=== PATIENT | female | born 1945 | race Caucasian/White ===

== ENCOUNTER → 2018-03-21 11:16 | Outpatient (CLI) | payer MEDICARE, SELFPAY ==
--- NOTE | 2018-03-21 | DI.MG.S_ITS ---
BILATERAL DIGITAL SCREENING MAMMOGRAM 3D/2D WITH CAD: 03/21/2018 CLINICAL: Routine screening. Family history of breast cancer. Comparison is made to exams dated: 03/04/2017 mammogram, 08/27/2015 mammogram, and 02/12/2015 mammogram - [facility]. The tissue of both breasts is extremely dense, which lowers the sensitivity of mammography. Current study was also evaluated with a Computer Aided Detection (CAD) system. There are benign calcifications in the right breast. There also is a biopsy clip in the left breast. No significant masses, calcifications, or other findings are seen in either breast. There has been no significant interval change. IMPRESSION: BENIGN There is no mammographic evidence of malignancy. A 1 year screening mammogram is recommended. This exam was interpreted at Station ID: [id number]. NOTE: For mammograms, a report in lay terms will be sent to the patient. Approximately 15% of breast malignancies will not be visualized mammographically. In the management of a palpable breast mass, a negative mammogram must not discourage biopsy of a clinically suspicious lesion. Electronically Signed By: Shaun lion/pavel:03/21/2018 20:21:18 letter sent: Normal Exam ACR BI-RADS Category 2: Benign Finding(s) 3342F
== END ==
PROVIDERS: Family Provider Physician Assistant; PCP Physician Assistant; Visit Provider Physician Assistant
DX: Z12.31 Encounter for screening mammogram for malignant neoplasm of breast (principal); Z80.3 Family history of malignant neoplasm of breast
CPT/HCPCS: 77063; 77067

== ENCOUNTER → 2018-07-21 07:05 | Outpatient (CLI) | payer MEDICARE, SELFPAY ==
[2018-07-21 08:24] LABS: Alanine Aminotransferase 18 IU/L (9-52); Albumin 4.5 g/dL (3.5-5.0); Albumin Globulin Ratio 1.5 (1.0-2.8); Alkaline Phosphatase 89 U/L (38-126); Aspartate Aminotransferase 23 IU/L (14-36); BUN Creatinine Ratio 18.8 (6-22); Bilirubin Total 0.2 mg/dL (0.2-1.3); Blood Urea Nitrogen 15 mg/dL (7-17); Calcium 9.5 mg/dL (8.4-10.2); Carbon Dioxide 30 mmol/L (22-32); Chloride 102 mmol/L (98-107); Cholesterol 227 mg/dL (140-199); Estimated Glomerular Filt Rate > 60.0 mL/min (>60); Glucose 93 mg/dL (80-110); HDL Cholesterol 54 mg/dL (40-60); HEMOLYSIS < 15 (0-50); LDL Cholesterol Calculated 150 mg/dL (<100); Potassium 4.4 mmol/L (3.4-5.1); Sodium 144 mmol/L (137-145); Total Protein 7.5 g/dL (6.3-8.2); Triglycerides 113 mg/dL (35-150)
[2018-07-21 08:37] LABS: Vitamin D 25 Hydroxy (D3) 74.3 ng/mL (30.0-100.0)
[2018-07-21 08:52] LABS: Thyroid Stimulating Hormone 1.49 uIU/mL (0.47-4.68)
[2018-07-21 09:10] LABS: Hep C Virus Ab w/Reflex Quant NEGATIVE s/c (NEGATIVE)
== END ==
PROVIDERS: PCP Physician Assistant; Visit Provider Physician Assistant
DX: E78.5 Hyperlipidemia, unspecified (principal); M81.0 Age-related osteoporosis without current pathological fracture; Z11.59 Encounter for screening for other viral diseases
CPT/HCPCS: 36415; 80053; 80061; 82306; 84443; 86803

== ENCOUNTER 2018-08-02 07:42 | Day surgery (SDC) | payer MEDICARE, SELFPAY ==
[2018-08-02] VITALS (7 sets, daily range): BP systolic 100–117; BP diastolic 65–77; PULSE 70–85; RESP 12–97; TEMP 35.7–36.5; O2SAT 96–100; BMI 23.8
--- NOTE | 2018-08-02 | PATH_ITS ---
[facility] Accession Number: [id number] . 01 Material submitted: . COLON POLYP AT 30CM . 02 Diagnosis: Colon, Polyp at 30 cm, Biopsy: Hyperplastic polyp. [facility]/08/04/2018 . 02 Electronically signed: . Kamryn Gruber MD, Pathologist NPI- [id number] . 01 Gross description: . COLON POLYP AT 30CM: Received in formalin is 1 fragment(s) of moyer, soft tissue measuring 0.4 x 0.4 x 0.2 cm submitted entirely in 1 cassette(s) /CKI /CKI . 02 Pathologist provided ICD-10: K63.5 . 02 CPT . 253183 Performed at: 01 [facility] [address] [id number] MD Twan Roberson MD Phone: [phone] Performed at: 02 [facility] [address] [place], [place] [id number] MD Kamryn Gruber MD Phone: [phone]
[2018-08-02] MEDS: SODIUM CHLORIDE 0.9% 1,000 ML 200 ML IV (08:15)
--- NOTE | 2018-08-02 08:34 | SUR.PREOP ---
Pt ready for Endo at this time. IVF up, PIV patent, nursing data base has been completed, and awaiting MD to sign consent.
--- NOTE | 2018-08-02 09:24 | PM.HP.1 ---
History of Present Illness Date Patient Seen: 08/02/18 Time Patient Seen: 09:24 Chief complaint: colonoscopy [id number] Narrative: The patient is a woman here for screening colonoscopy. Last exam was 5 years ago. She has had polyps removed in the past. Patient History Family & Social History Family History: Reviewed 08/02/18 by Gus Tavera MD Social History: household members spouse Tobacco & Substance use: Smoking Status Former smoker alcohol intake current Meds Home Medications Medication Instructions Recorded Confirmed Type [VITAMIN D] 1,000 units PO QDAY #0 01/06/11 08/02/18 History Calcium Gummies See Label Instructions .ROUTE 06/01/18 08/02/18 History .COMPLEX Krill Oil See Label Instructions .ROUTE 06/01/18 08/02/18 History .COMPLEX Multivitamin Gummies See Label Instructions .ROUTE 06/01/18 08/02/18 History .COMPLEX pneumococcal 13-emiliana conj 0.5 ml IM ONCE #0.5 ml 06/01/18 Rx vaccine-dip crm (PF) 0.5 mL IM syringe varicella-zoster glycoE vacc-AS01B 50 mcg IM ONCE #1 each 06/01/18 Rx adj(PF) 50 mcg/0.5 mL IM susp, kit Lacto.acidophilus-Bif.animalis 1 cap PO DAILY 08/02/18 08/02/18 History [Probiotic] Allergies Allergy/AdvReac Type Severity Reaction Status Date / Time nitrofurantoin Allergy Severe HIVES Unverified 06/01/18 11:33 [NITROFURANTOIN] bupropion [BUPROPION] AdvReac Severe HIVES AND Unverified 06/01/18 11:33 ITCHING ALL OVER BODY shrimp AdvReac Intermediate N/V/D; hot Verified 06/01/18 12:12 flashes and sweating Review of Systems Review of Systems All systems reviewed & are unremarkable except as noted in HPI and below Exam Vital Signs (past 8 hours): - 08/02/18 08:04 Temperature 97.3 F L Pulse Rate 85 Respiratory Rate 15 Blood Pressure 106/77 Pulse Oximetry 100 Oxygen Delivery Method Room Air Narrative Exam Narrative: Operative no apparent distress. Lungs are clear to auscultation no rales or rhonchi. Heart regular rate and rhythm no murmur gallop. Abdomen is soft nontender without mass. Alert and oriented x3. Assessment & Plan Plan: Assessment/Plan Narrative: Will proceed to colonoscopy. I have discussed the procedure and the rationale with the patient including risks of bleeding, perforation which would necessitate a major operation, failure to find remove all lesions and the potential to tattoo. They appeared to understand and wished to proceed.
--- NOTE | 2018-08-02 09:26 | PM.PREOP ---
Pre-operative Note Interval Note Pre-op Check: Yes History & Physical exam performed today by Physician Changes: No ASA Class (for procedural sedation): I
[2018-08-02] MEDS: fentaNYL 250 MCG/5 ML INJ IV (09:51)
[2018-08-02] MEDS: MIDAZOLAM 5 MG/5 ML VIAL IV (09:51)
--- NOTE | 2018-08-02 10:07 | PM.OP.ENDO ---
Operative Date/Time/Diagnoses Date of procedure: 08/02/18 Time of procedure: 10:00 Pre-op diagnosis: Screening exam. History of polyps. Last colonoscopy 5 years ago Post-op diagnosis: same (Sigmoid diverticulosis. Hemorrhoids. One tiny polypoid lesion at 30 cm from the anal verge) Procedure & Clinicians Study performed: Colonoscopy with cold biopsy Same procedure as scheduled: Yes Indications: Screening exam Surgeon: Gus Tavera Procedure Notes SCOAP/Timeout: Performed Procedure in detail: The patient was placed in the left lateral decubitus position and underwent IV sedation directed by the surgeon consisting of fentanyl and Versed. Digital exam was unremarkable. The scope was inserted and advanced through the rectum into the sigmoid colon. The patient was repositioned in a stiffener added in order to make our way through the descending, transverse, and ascending colon. The patient was noted to have sigmoid diverticulosis.. The cecum was reached identified by the ileocecal valve and the appendiceal opening. The ileocecal valve was successfully cannulated. The terminal ileum was normal in appearance. The scope was gradually brought out. A single Polypoid lesion was found at 30 cm from the anal verge. it was removed with cold biopsy forceps. The scope ultimately was attempted to be retroflexed in the rectum. This was unsuccessful. The scope was brought very slowly through the anal verge. The appearance was remarkable for hemorrhoids without ulceration. There was 1 small irregularity which I biopsied but the specimen was not in the forcep. The scope was removed and the patient tolerated the procedure well. Prep was very good. Scope withdrawal time: 10 min Sedation minutes: 28 Findings: diverticulosis (Sigmoid), internal hemorrhoids and polyp (30 cm from the anal verge) Specimen(s): other (Polypoid lesion) Complications: none Recommendations: Colonscopy in 5 years Follow up: as needed Disposition: PACU
== END 2018-08-02 11:10 | disposition home or self-care (01) ==
PROVIDERS: PCP Physician Assistant; Visit Provider Specialist
PROC: 0DJD8ZZ Inspection of Lower Intestinal Tract, Via Natural or Artificial Opening Endoscopic (ICD-10-PCS; CPT 45378; principal; 2018-08-02 08:45)
DX: Z86.010 Personal history of colon polyps (principal); K57.30 Diverticulosis of large intestine without perforation or abscess without bleeding; K64.8 Other hemorrhoids; Z87.891 Personal history of nicotine dependence; K63.5 Polyp of colon
CPT/HCPCS: 45380; 88305; 99152; 99153; J2250; J3010

== ENCOUNTER → 2019-01-06 15:37 | Outpatient (CLI) | payer MEDICARE, SELFPAY ==
[2019-01-06 16:04] LABS: Bilirubin Urine UA NEGATIVE (NEGATIVE); Color Urine UA YELLOW; Glucose Urine UA NEGATIVE (Negative); Ketones Urine UA NEGATIVE (NEGATIVE); Leukocyte Esterase Urine UA TRACE (NEGATIVE); Nitrite Urine UA NEGATIVE (Negative); Occult Blood Urine UA 1+ (Negative); Protein Urine UA NEGATIVE (Negative); Urobilinogen Urine UA 0.2 E.U./dL (0.2)
[2019-01-06 16:07] LABS: Appearance Urine UA Slightly Cloudy
[2019-01-06 16:10] LABS: RBC Urine 1-5/HPF (0-5/HPF)
[2019-01-06 16:11] LABS: Amorphous Sediment Urine 1+; Bacteria Urine Occasional (0-1); Culture Indicated Urine Specimen Cultured; Mucus Urine 1+ (Negative); Squamous Epithelial Cell Urine 0-1 /HPF (0-5/HPF); WBC Urine 5-10/HPF (0-5/HPF)
== END ==
PROVIDERS: PCP Physician Assistant; Visit Provider Nurse Practitioner Family
DX: R30.0 Dysuria (principal)
CPT/HCPCS: 81001; 87086

== ENCOUNTER → 2019-01-13 13:39 | Outpatient (CLI) | payer MEDICARE, SELFPAY ==
[2019-01-13 13:42] LABS: Bacteria Urine None Seen
[2019-01-14 08:39] LABS: Appearance Urine UA CLEAR; Bilirubin Urine UA NEGATIVE (NEGATIVE); Color Urine UA YELLOW; Glucose Urine UA NEGATIVE (Negative); Ketones Urine UA NEGATIVE (NEGATIVE); Leukocyte Esterase Urine UA NEGATIVE (NEGATIVE); Nitrite Urine UA NEGATIVE (Negative); Occult Blood Urine UA NEGATIVE (Negative); Protein Urine UA NEGATIVE (Negative); Specific Gravity Urine UA 1.025 (1.000-1.035); Urobilinogen Urine UA 0.2 E.U./dL (0.2); pH Urine UA 5.5 (4.5-8.0)
[2019-01-14 09:14] LABS: Culture Indicated Urine Cult Not Indicated; RBC Urine 0-1/HPF (0-5/HPF); Squamous Epithelial Cell Urine 0-1 /HPF (0-5/HPF); WBC Urine 0-1/HPF (0-5/HPF)
== END ==
PROVIDERS: PCP Physician Assistant; Visit Provider Nurse Practitioner Family
DX: R30.0 Dysuria (principal)
CPT/HCPCS: 81001

== ENCOUNTER → 2019-03-22 11:31 | Outpatient (CLI) | payer MEDICARE, SELFPAY ==
--- NOTE | 2019-03-22 | DI.MG.S_ITS ---
BILATERAL DIGITAL SCREENING MAMMOGRAM 3D/2D WITH CAD: 03/22/2019 CLINICAL: Routine screening. Family history of breast cancer. Comparison is made to exams dated: 03/21/2018 mammogram, 03/04/2017 mammogram, and 08/27/2015 mammogram - [facility]. The tissue of both breasts is extremely dense, which lowers the sensitivity of mammography. Current study was also evaluated with a Computer Aided Detection (CAD) system. There is a benign biopsy clip in the left breast. There is a mole marker on the right breast. No significant masses, calcifications, or other findings are seen in either breast. There has been no significant interval change. IMPRESSION: NEGATIVE There is no mammographic evidence of malignancy. A 1 year screening mammogram is recommended. This exam was interpreted at Station ID: [id number]. NOTE: For mammograms, a report in lay terms will be sent to the patient. Approximately 15% of breast malignancies will not be visualized mammographically. In the management of a palpable breast mass, a negative mammogram must not discourage biopsy of a clinically suspicious lesion. Electronically Signed By: Shaun lion/pavel:03/22/2019 20:41:49 letter sent: Normal Exam ACR BI-RADS Category 1: Negative 3341F
== END ==
PROVIDERS: PCP Physician Assistant; Visit Provider Physician Assistant
DX: Z12.31 Encounter for screening mammogram for malignant neoplasm of breast (principal); Z80.3 Family history of malignant neoplasm of breast
CPT/HCPCS: 77063; 77067

== ENCOUNTER → 2020-08-27 11:35 | Outpatient (CLI) | payer MEDICARE, SELFPAY ==
--- NOTE | 2020-08-27 | DI.MG.S_ITS ---
BILATERAL DIGITAL SCREENING MAMMOGRAM 3D/2D WITH CAD: 08/27/2020 CLINICAL: Routine screening. Family history of breast cancer. Comparison is made to exams dated: 03/22/2019 mammogram, 03/21/2018 mammogram, and 03/04/2017 mammogram - [facility]. The tissue of both breasts is extremely dense, which lowers the sensitivity of mammography. Current study was also evaluated with a Computer Aided Detection (CAD) system. There is a biopsy clip in the left breast. No significant masses, calcifications, or other findings are seen in either breast. There has been no significant interval change. IMPRESSION: NEGATIVE There is no mammographic evidence of malignancy. A 1 year screening mammogram is recommended. This exam was interpreted at Station ID: [id number]. NOTE: For mammograms, a report in lay terms will be sent to the patient. Approximately 15% of breast malignancies will not be visualized mammographically. In the management of a palpable breast mass, a negative mammogram must not discourage biopsy of a clinically suspicious lesion. Electronically Signed By: Morales pace/pavel:08/27/2020 14:06:46 letter sent: Normal Exam ACR BI-RADS Category 1: Negative 3341F
== END ==
PROVIDERS: PCP Student in an Organized Health Care Education/Training Program; Referring Provider Student in an Organized Health Care Education/Training Program; Visit Provider Student in an Organized Health Care Education/Training Program
DX: Z12.31 Encounter for screening mammogram for malignant neoplasm of breast (principal); Z80.3 Family history of malignant neoplasm of breast
CPT/HCPCS: 77063; 77067

== ENCOUNTER → 2021-01-08 08:12 | Outpatient (CLI) | payer MEDICARE, SELFPAY ==
--- NOTE | 2021-01-08 08:16 | DI.US.S_ITS ---
PROCEDURE: US PELVIC COMPLETE INDICATIONS: PROLAPSED UTERUS TECHNIQUE: Real-time scanning was performed of the pelvic organs, with image documentation. Additional endovaginal scanning was necessary due to incomplete visualization of the adnexal and endometrial structures by transabdominal scanning. COMPARISON: None. FINDINGS: Uterus: Uterus is normal in size at 4.6 x 3.9 x 2.3 cm. The endometrium measures 5.9 mm in combined thickness. Ovaries: Right ovary measures 2.1 x 0.9 x 1.2 cm and the left 1.8 x 1.8 x 1.3 cm. No adnexal masses are seen. Other: No pathologic free abdominal or pelvic fluid. IMPRESSION: No pelvic abnormalities identified. Dictated by: Adithya SMITH Interpreted: Morales Weston MD on 01/08/2021 at 10:50 Transcribed by: JUS on 01/08/2021 at 10:51 Approved by: Morales Weston M.D. on 01/08/2021 at 14:52
== END ==
PROVIDERS: PCP Registered Nurse; Referring Provider Registered Nurse; Visit Provider Registered Nurse
DX: N81.4 Uterovaginal prolapse, unspecified (principal)
CPT/HCPCS: 76830; 76856

== ENCOUNTER 2021-01-13 08:19 | Emergency (ER) | payer MEDICARE, SELFPAY ==
[2021-01-13 08:29] VITALS: BP 147/72; PULSE 76; RESP 17; TEMP 36.8; O2SAT 98; BMI 24.8
--- NOTE | 2021-01-13 08:54 | ED_ITS ---
HPI - Skin/Abscess/Foreign Bdy General Chief complaint: Skin/Abscess/Foreign Body Stated complaint: CYST ON BACK. BELIEVES IT IS INFECTED Time Seen by Provider: 01/13/21 08:54 Source: patient Mode of arrival: Ambulatory Limitations: no limitations History of Present Illness HPI narrative: This is a 75-year-old female who states she has had a cyst on her back for several years that has resolved and recurred multiple times. She states that it has become increasingly swollen, red and painful. She states she noticed little bit of drainage the other day were area had scabbed over and she had irritated that area. She denies fevers. She denies any other systemic symptoms. 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 She denies allergies except to nitrofurantoin and shrimp. Related Data Home Medications Medication Instructions Recorded Confirmed [VITAMIN D] 1,000 units PO QDAY #0 01/06/11 01/06/19 Calcium Gummies See Rx Instructions .ROUTE .COMPLEX 06/01/18 01/06/19 Krill Oil See Rx Instructions .ROUTE .COMPLEX 06/01/18 01/06/19 Multivitamin Gummies See Rx Instructions .ROUTE .COMPLEX 06/01/18 01/06/19 Lacto.acidophilus-Bif.animalis 1 cap PO DAILY 08/02/18 01/06/19 [Probiotic] Previous Rx's Medication Instructions Recorded pneumoc 13-emiliana conj-dip cr(PF) 0.5 0.5 ml IM ONCE #0.5 ml 06/01/18 mL IM syringe varicella-zoster glycoE vacc-AS01B 50 mcg IM ONCE #1 each 06/01/18 adj(PF) 50 mcg/0.5 mL IM susp, kit sulfamethoxazole-trimethoprim 1 tab PO Q12H #14 tab 01/13/21 [Bactrim DS] Allergies Allergy/AdvReac Type Severity Reaction Status Date / Time nitrofurantoin Allergy Severe HIVES Verified 01/13/21 08:42 [NITROFURANTOIN] bupropion [BUPROPION] AdvReac Severe HIVES AND Verified 01/13/21 08:42 ITCHING ALL OVER BODY shrimp AdvReac Intermediate N/V/D; hot Verified 01/13/21 08:42 flashes and sweating Review of Systems Review of Systems ROS Unobtainable: All systems reviewed & are unremarkable except as noted in HPI and below Patient History Medical History Prolapsed uterus Family History Father Cancer of kidney Metastasis to brain Mother Osteoporosis Hypothyroidism Breast cancer Dementia Social History household members: spouse Smoking Status: Former smoker Tobacco: How many years used: 50 (off and on, but it was not very much) second hand exposure: No alcohol intake: current (only 6 drinks a year.) substance use type: does not use Smoking Status: Former smoker alcohol intake frequency: holidays/special occasions only Substance Use Type: does not use Exam Narrative Exam Narrative: GENERAL: Alert and oriented x three, well-nourished female in mild distress. HEENT: Head normocephalic, atraumatic, EOMI, pupils reactive, face symmetric, moist mucous membranes NECK: Supple, full range of motion CARDIOVASCULAR: Regular rate and rhythm without murmurs, rubs or gallops. RESPIRATORY: Breath sounds equal bilaterally, no wheezes rales or rhonchi. ABDOMEN: Soft, nontender. Normoactive bowel sounds all 4 quadrants. No guarding or rebound, rigidity, no mass EXTREMITIES: Normal range of motion, no clubbing or edema. Neurovascularly intact NEUROLOGICAL: Cranial nerves II through XII grossly intact. Moving all extremities SKIN: Warm, dry, no petechiae, patient has a 2 cm area that is swollen and full consistent with a cyst, there is some circumferential erythema noted. There is some induration but she has centralized fluctuance. There is 2 areas of scab with a central scab as well as a small scab at the 6 o'clock position. When patient was touching the wound began she de roofed the 6:00 a.m. scab draining a small amount of thick white chunky fluid with a mildly foul odor. Initial Vital Signs Initial Vital Signs: Vital Signs Temperature 98.2 F 01/13/21 08:29 Pulse Rate 76 01/13/21 08:29 Respiratory Rate 17 01/13/21 08:29 Blood Pressure 147/72 H 01/13/21 08:29 Pulse Oximetry 98 01/13/21 08:29 Procedures Abscess I/D I&D #1: Site: back Side (if applicable): right Local Anesthetic: lidocaine 1% Amount of anesthesia used (mL): 3 Technique: needle aspiration and incised with #11 blade Amount of fluid expressed (mL): 6 Irrigation: Yes Packing used?: iodoform Course Orders Ordered: Discontinued Medications Lidocaine/Sodium Bicarbonate (Lido 1%/Sod Bicarb 8.4% (10ml) 10 Ml Syringe) 10 ml INJ NOW ONE Stop: 01/13/21 09:04 Last Admin: 01/13/21 09:15 Dose: 10 ml Documented by: CHAD Vital Signs Vital signs: Vital Signs - 8 hr 01/13/21 08:29 Temperature 98.2 F Pulse Rate 76 Respiratory Rate 17 Blood Pressure 147/72 H Pulse Oximetry 98 MDM - Skin/Abscess/Foreign Bdy MDM Narrative Medical decision making narrative: This is a pleasant 75-year-old female with complaint of cyst which has increased in size and him erythematous. Patient has a infected cyst on her back. On incision and drainage with verbal consent given by patient. She already had some drainage but the area was enlarged with a X. Patient was irrigated and had iodoform packing placed she had a significant amount of thick chunky discharge. Patient I discussed recommend starting her antibiotics after 24 hours if she has not continuing to have improvement. If it seems to be healing well she does not have to start antibiotics. She has 24 hour follow-up with primary care already in place for follow-up of an ultrasound that she had already obtained. She does not any other systemic symptoms today. All questions were answered. Patient tolerated procedure very well. Culture was obtained and sent. Discharge Plan Departure Patient Disposition: Home Clinical Impression: Infected cyst of skin Instructions: DI for Incision and Drainage of a Skin Abscess Activity Restrictions/Additional Instructions: Follow up with your physician or diamond finishing supervisor for recheck and wound check in the next 24-48 hours. You may take Tylenol up to a 1000 mg every 8 hours as needed for pain and/or ibuprofen up to 800 mg every 8 hours as needed for pain. Prescription for antibiotic sent to [facility] in [place]. I would recommend waiting 24 hours to see how your incision and drainage progresses. If it is improving quickly you do not need to start antibiotics if there is any concern or it seems like it is worsening in any way go ahead start antibiotics. Wound Care: Keep wound(s) clean and dry. Wash daily with soap and water only. Do not use over the counter products (alcohol or peroxide)on the wounds unless instructed by a physician. You can put a triple antibiotic ointment on with bandage changes 3-4 times daily. If wound condition worsens (increased/expanding redness, developing fluid blisters, or worsening pain), either contact your doctor for an urgent re- assessment , or return to the Emergency Department. Return to the Emergency Department for any new or worsening symptoms. Return if fever greater than 100.4 Fahrenheit, increased swelling, increasing pain or worsening symptoms such as increased discharge or spreading redness. Use warm compresses 3 times daily for 20 minutes to the affected area. If there is packing in place do not pull it out, if it falls out do not try to replace it. Prescriptions: New sulfamethoxazole-trimethoprim [Bactrim DS] 800-160 mg tablet 1 tab PO Q12H Qty: 14 RF: 0 No Action Calcium Gummies See Rx Instructions .ROUTE .COMPLEX RF: 0 Multivitamin Gummies See Rx Instructions .ROUTE .COMPLEX RF: 0 Krill Oil See Rx Instructions .ROUTE .COMPLEX RF: 0 pneumoc 13-emiliana conj-dip cr(PF) [Prevnar 13 (PF)] 0.5 mL syringe 0.5 ml IM ONCE Qty: 0.5 RF: 1 varicella-zoster gE-AS01B (PF) [Shingrix (PF)] 50 mcg/0.5 mL suspension for reconstitution 50 mcg IM ONCE Qty: 1 RF: 1 [VITAMIN D] 1,000 units PO QDAY Qty: 0 RF: 0 Lacto.acidophilus-Bif.animalis [Probiotic] 5 billion cell Capsule, Sprinkle 1 cap PO DAILY RF: 0 Referrals: Kay Roberts ARNP [Primary Care Provider] -
[2021-01-13] MEDS: LIDO 1%/SOD BICARB 8.4% (10ML) 10 ML SYRINGE INJ (09:15)
--- NOTE | 2021-01-13 09:50 | PC.NURSE ---
Abscess to upper back near spine, [id number]. Red, raised, draining fluid in a couple of areas.
--- NOTE | 2021-01-13 09:51 | PC.NURSE ---
incision and drainage performed by Dr. Childress, with packing placed.
== END 2021-01-13 09:51 | disposition home or self-care (01) ==
PROVIDERS: Emergency Provider Emergency Medicine; PCP Registered Nurse
DX: L72.9 Follicular cyst of the skin and subcutaneous tissue, unspecified (principal)
CPT/HCPCS: 10060; 87070; 87077; 87147; 87186; 87205; 99283

== ENCOUNTER → 2021-02-27 07:21 | Outpatient (CLI) | payer MEDICARE, SELFPAY ==
[2021-02-27 09:19] LABS: Alanine Aminotransferase 12 IU/L (<35); Albumin 4.3 g/dL (3.5-5.0); Albumin Globulin Ratio 1.6 (1.0-2.8); Alkaline Phosphatase 83 U/L (38-126); Aspartate Aminotransferase 23 IU/L (14-36); Bilirubin Total 0.3 mg/dL (0.2-1.3); Blood Urea Nitrogen 20 mg/dL (7-17); Calcium 9.4 mg/dL (8.4-10.2); Carbon Dioxide 28 mmol/L (22-32); Chloride 105 mmol/L (98-107); Cholesterol 207 mg/dL (140-199); Estimated Glomerular Filt Rate > 60.0 mL/min (>60); Globulin 2.7 g/dL (1.7-4.1); Glucose 87 mg/dL (80-110); HDL Cholesterol 54 mg/dL (40-60); HEMOLYSIS < 15 (0-50); LDL Cholesterol Calculated 130 mg/dL (<100); Potassium 5.2 mmol/L (3.4-5.1); Sodium 138 mmol/L (137-145); Triglycerides 115 mg/dL (35-150)
== END ==
PROVIDERS: PCP Registered Nurse; Referring Provider Registered Nurse; Visit Provider Registered Nurse
DX: E78.5 Hyperlipidemia, unspecified (principal)
CPT/HCPCS: 36415; 80053; 80061

== ENCOUNTER → 2021-08-28 09:54 | Outpatient (CLI) | payer MEDICARE, SELFPAY ==
--- NOTE | 2021-08-28 09:56 | DI.MG.S_ITS ---
BILATERAL DIGITAL SCREENING MAMMOGRAM 3D/2D WITH CAD: 08/28/2021 CLINICAL: Routine screening. Family history of breast cancer. Comparison is made to exams dated: 08/27/2020 mammogram, 03/22/2019 mammogram, and 03/21/2018 mammogram - [facility]. The tissue of both breasts is heterogeneously dense. This may lower the sensitivity of mammography. Current study was also evaluated with a Computer Aided Detection (CAD) system. There is a biopsy clip in the left breast. No significant masses, calcifications, or other findings are seen in either breast. There has been no significant interval change. IMPRESSION: NEGATIVE There is no mammographic evidence of malignancy. A 1 year screening mammogram is recommended. This exam was interpreted at Station ID: [id number]. NOTE: For mammograms, a report in lay terms will be sent to the patient. Approximately 15% of breast malignancies will not be visualized mammographically. In the management of a palpable breast mass, a negative mammogram must not discourage biopsy of a clinically suspicious lesion. Electronically Signed By: Twan corral/pavel:08/28/2021 15:52:56 letter sent: Normal Exam ACR BI-RADS Category 1: Negative 3341F
== END ==
PROVIDERS: PCP Registered Nurse; Referring Provider Registered Nurse; Visit Provider Registered Nurse
DX: Z12.31 Encounter for screening mammogram for malignant neoplasm of breast (principal); Z80.3 Family history of malignant neoplasm of breast
CPT/HCPCS: 77063; 77067

== ENCOUNTER → 2022-09-01 11:10 | Outpatient (CLI) | payer MEDICARE, SELFPAY ==
--- NOTE | 2022-09-01 | DI.MG.S_ITS ---
BILATERAL DIGITAL SCREENING MAMMOGRAM 3D/2D WITH CAD: 09/01/2022 CLINICAL: Routine screening. Family history of breast cancer. Comparison is made to exams dated: 08/28/2021 mammogram, 08/27/2020 mammogram, and 03/22/2019 mammogram - [facility]. Both breasts are heterogeneously dense, which may obscure small masses (category c / 51-75% glandular tissue). Current study was also evaluated with a Computer Aided Detection (CAD) system. There is a biopsy clip in the left breast. No significant masses, calcifications, or other findings are seen in either breast. There has been no significant interval change. IMPRESSION: NEGATIVE There is no mammographic evidence of malignancy. A 1 year screening mammogram is recommended. Based on the Tyrer Cuzick model (a risk assessment model) the patient's lifetime risk is 9.1% and her 10 year risk is 8.3%. According to the ACR, ACS, and NCCN guidelines, an annual breast MRI exam along with mammogram is recommended if the patient's lifetime risk is 20% or greater. This exam was interpreted at Station ID: [id number]. NOTE: For mammograms, a report in lay terms will be sent to the patient. Approximately 15% of breast malignancies will not be visualized mammographically. In the management of a palpable breast mass, a negative mammogram must not discourage biopsy of a clinically suspicious lesion. Electronically Signed By: Milan urban/pavel:09/01/2022 17:38:56 letter sent: Normal Exam ACR BI-RADS Category 1: Negative 3341F
== END ==
PROVIDERS: PCP Family Medicine; Referring Provider Nurse Practitioner; Visit Provider Nurse Practitioner
DX: Z12.31 Encounter for screening mammogram for malignant neoplasm of breast (principal); Z80.3 Family history of malignant neoplasm of breast
CPT/HCPCS: 77063; 77067

== ENCOUNTER → 2022-10-20 11:47 | Outpatient (CLI) | payer MEDICARE, SELFPAY | PROVIDERS: PCP Family Medicine; Visit Provider Physician Assistant | DX: J02.9 Acute pharyngitis, unspecified (principal) | CPT/HCPCS: 87070 ==

== ENCOUNTER 2023-02-15 08:12 | Day surgery (SDC) | payer MEDICARE, SELFPAY ==
[2023-02-04 10:17] VITALS: BMI 24.3
[2023-02-15] VITALS (12 sets, daily range): BP systolic 105–126; BP diastolic 52–70; PULSE 60–79; RESP 10–20; TEMP 35.6–36.6; O2SAT 94–99; BMI 24.3
--- NOTE | 2023-02-15 | PATH_ITS ---
[facility] Accession Number: [id number] No. of containers..01 Tissue . 01 Material submitted: . uterus - UTERUS, BILATERAL TUBES AND OVARIES . 01 Diagnosis: Uterus, Cervix, Left and Right Fallopian Tubes and Ovaries, Hysterectomy and Bilateral Salpingo-oophorectomy: Cervix: Nabothian cysts. Endometrium: Disordered with endometrial polyp. Myometrium: Hyalinized leiomyomata. Fallopian tubes: No significant pathologic abnormalities. Ovaries: Postmenopausal changes with corpora albicantia. [facility] 02/22/2023 1714 Local . 01 Electronically signed: . Nathalie Pappas MD, Pathologist NPI- [id number] . 01 Gross description: . The specimen is received in formalin labeled with the patient's name, , and uterus, tubes, and ovaries, and consists of an intact uterus (55 grams, 7.2 SI, 5.0 ML, 2.7 AP cm) with attached cervix (3.5 x 3.4 cm), with left fallopian tube (4.1 x 0.6 cm), with left ovary (1.7 x 1.4 x 0.7 cm, 2 grams), right fallopian tube (3.9 x 0.7 cm), right ovary (3 grams, 2.2 x 1.3 x 0.9 cm). . The ectocervix is moyer and wrinkled with a circular os measuring 0.4 cm in diameter. The anterior paracervical margin is inked blue while the posterior paracervical margin is inked black. The serosa is moyer with hemorrhagic areas measuring up to 1.7 cm in greatest dimension. The endocervical canal has moyer herringbone mucosa and measures 1.9 cm in length. The endometrial cavity measures 1.9 cm from cornu to cornu, and 3.3 cm in length with brown velvety endometrium and a brown wrinkled polypoid structure located in the left cornu measuring 1.5 x 0.9 x 0.6 cm. The endometrium averages less than 0.1 cm thick. The myometrium is moyer and trabecular with two well-circumscribed white whorled nodules ranging from 0.4 to 0.6 cm in greatest dimension with no hemorrhage or necrosis identified. . The left fallopian tube has violaceous smooth serosa with no cystic structures identified, and sectioning reveals an unremarkable stellate lumen. The left ovary has a moyer cerebriform external surface, and sectioning reveals an unremarkable, physiologic cut surface. The right fallopian tube has violaceous smooth serosa with no cystic structures identified, and sectioning reveals an unremarkable stellate lumen. The right ovary has a moyer cerebriform external surface, and sectioning reveals an unremarkable, physiologic cut surface. . [employer] sections are submitted as follows: A1: Anterior cervix. A2: Posterior cervix. A3: Anterior full thickness section. A4: Posterior full thickness section. A5: Full thickness section with endometrial polyp and nodule. A6: Additional nodule and serosa. A7: Left fallopian tube to include one-half of bisected fimbriae and cross -sections. A8: Left ovary. A9: Right fallopian tube to include one-half of bisected fimbriae and cross-sections. A10: Right ovary. ([id number]) /DINA 02/18/2023 1203 Local . 01 Pathologist provided ICD-10: D25.9 . 01 CPT . 832133 Specimen Comment: A courtesy copy of this report has been sent to [phone] Performed at: 01 [facility] [address] [place] [address], [place], [place] [id number] MD Twan Roberson MD Phone: [phone]
[2023-02-15] MEDS: LACTATED RINGERS 1,000 ML 100 ML IV (08:47)
[2023-02-15 09:07] LABS: Add Manual Diff / Slide Review NO; Basophils Absolute Auto 0 /uL (0-100); Basophils Percent Auto 0.6 % (0-2); Eosinophils Absolute Auto 100 /uL (0-450); Eosinophils Percent Auto 2.3 % (2-4); Hematocrit 37.4 % (36-46); Hemoglobin 12.8 g/dL (12.0-16.0); Lymphocytes Absolute Auto 2300 /uL (1100-4500); Lymphocytes Percent Auto 40.7 % (25-40); Mean Corpuscular HGB Conc 34.2 % (30-36); Mean Corpuscular Hemoglobin 29.6 PG (26-34); Mean Corpuscular Volume 86.4 fL (80-100); Monocytes Absolute Auto 400 /uL (0-900); Monocytes Percent Auto 6.8 % (3-14); Neutrophils Absolute Auto 2800 /uL (1500-7000); Neutrophils Percent Auto 49.6 % (50-75); Platelet Count 191 X10^3/uL (150-400); Red Blood Cell Count 4.33 X10^6/uL (4.0-5.2); Red Cell Distribution Width 13.6 % (11.6-14.8); White Blood Cell Count 5.6 X10^3/uL (4.5-11.0)
[2023-02-15 09:11] LABS: BUN Creatinine Ratio 18.8 (6-22); Blood Urea Nitrogen 16 mg/dL (7-17); Carbon Dioxide 25 mmol/L (22-32); Chloride 104 mmol/L (98-107); Estimated Glomerular Filt Rate > 60 mL/min (>60); Glucose 93 mg/dL (80-110); HEMOLYSIS < 15 (0-50); Potassium 4.1 mmol/L (3.4-5.1); Sodium 137 mmol/L (137-145)
[2023-02-15] MEDS: ACETAMINOPHEN 325 MG TABLET 650 MG PO ×2 (09:16→17:31)
--- NOTE | 2023-02-15 09:38 | PM.PREOP ---
Pre-operative Note Interval Note History & Physical reviewed/Exam performed by Physician: Yes Changes to H&P: No H&P completed within 30 days and has changed as indicated here:: 02/03/23
[2023-02-15] MEDS: CEFAZOLIN 2 GM/100 ML PREMIX 100 ML IV (09:55)
--- NOTE | 2023-02-15 10:29 | SUR.OPER ---
Lithotomy on padded OR bed. [place] Pad Positioner under torso. Head on pillow, arms padded and tucked at sides. Legs secured in padded yellow fins stirrups.
[2023-02-15] MEDS: BUPIVACAINE 0.25% (PF) 30 ML, EPINEPHrine 0.15 MG INJ (11:47)
--- NOTE | 2023-02-15 12:19 | PM.GYNOP.1 ---
Operative Date/Time/Diagnoses Date of procedure: 02/15/23 Time of procedure: 12:19 Pre-op diagnosis: Uterine prolapse Cystocele Rectocele Post-op diagnosis: same Procedure & Clinicians Procedure: Procedures Operation Date: 02/15/23 09:45 Actual Procedure Side Surgeon p Laparoscopic Assisted Vaginal Hysterectomy, bilateral salpingo-oophorectomy Gisela Hudson MD s Anterior/Posterior Repair, Sacrospinous Ligament Fixation Gisela Hudson MD Indications: Symptomatic uterine prolapse Cystocele and rectocele Surgeon: Gislea Hudson Senior Informatica Developer: Carmen Mcallister Anesthesia Type: General and Local Operative Notes Findings: Third-degree uterine prolapse Third-degree cystocele Third-degree rectocele Normal uterus, tubes, and ovaries Closure Type: primary Specimen(s): left tube & ovary, right tube & ovary and uterus Applied: catheter (To continuous drainage) and other (Vaginal packing in place) Estimated blood loss (mL): 50 Blood products transfused: none Procedure in detail: The patient was taken to the operating room where she was placed in the dorsal supine position. After adequate general endotracheal anesthesia was achieved, she was placed in the dorsal lithotomy position, and prepped and draped in the usual sterile fashion. A time-out was performed. A bivalve speculum was placed into the vagina, and a single-tooth tenaculum was placed on the anterior lip of the cervix. The cervical os was sequentially dilated until the ZUMI uterine manipulator could pass easily into the endometrial cavity. The single-tooth tenaculum was removed from the anterior lip of the cervix, and the bivalve speculum was removed from the vagina. Attention was then turned to the abdomen where 6 mL of half percent Marcaine with epinephrine were injected in the umbilical fold. A 5 mm incision was made. The Veress needle was placed into the peritoneal cavity, and its placement confirmed by aspiration and drop test. The abdominal cavity was insufflated with 4 L of CO2. The Veress needle was removed, and a 5 mm trocar was placed without difficulty. Initial inspection of the pelvis revealed the findings noted above. 2 other incisions were made 4 cm lateral to the umbilicus after 6 cc of 0.25% Marcaine with epinephrine were injected. These were 5 mm incisions. Two 5 mm trocars were placed under direct visualization. The right tube and ovary were grasped with an atraumatic grasper. The infundibulopelvic ligament on the right side was cauterized and cut with plasma kinetic. The round ligament and broad ligament were cauterized and cut. This was continued to the level of the uterine arteries. This was repeated on the patient's left side. The instruments were removed from the abdomen. The CO2 was allowed to escape. Sterile blue towels were placed over the trocar. Attention was then turned to the vagina where the ZUMI uterine manipulator was removed from the uterus. The cervix was grasped with a 4 tooth tenaculum. 10 mL of quarter percent Marcaine with epinephrine were injected circumferentially around the cervix. The cervix was circumscribed. The bladder and rectum were dissected off the lower uterine segment and cervix with an open moistened Ray-Armaan. The peritoneum was entered sharply with the Metzenbaum scissors anteriorly and a [place] placed. The peritoneum was entered posteriorly with the Metzenbaum scissors and the long weighted speculum was placed into the posterior cul-de-sac. The uterosacral cardinal ligament complexes were clamped, transected, and suture ligated with 0 Vicryl. These were attached to a hemostats. The uterine arteries were clamped, transected, and suture ligated with 0 Vicryl. The uterus was handed off for specimen with the tubes and ovaries. The vaginal cuff was closed with 0 Vicryl with a series of simple interrupted sutures. The tagged sutures were cut. 2 Allis clamps were placed at the apex of the cystocele. 6 mL of half percent Marcaine with epinephrine were injected and an incision was made with a #10 blade between the 2 Allis clamps. Wide Allis clamps were placed on the midline of the cystocele approximately 5. The mucosa was undermined using the Metzenbaum scissors and the mucosa incised in the midline moving the wide Allis clamps to the edges of the mucosa. The mucosa was dissected off the underlying fascia using an open moistened Ray-Armaan and a #10 blade. The fascia was reapproximated with 0 Vicryl with a series of horizontal mattress sutures. The excess vaginal mucosa was excised. The mucosa was closed using simple interrupted sutures with 2-0 Vicryl including the underlying fascia to close the space. The weighted speculum was removed from the vagina. Allis clamps were placed at the mucocutaneous junction at the introitus. 6 mL of half percent Marcaine with epinephrine were injected. An incision was made with a #10 blade between the 2 Allis clamps, and a triangular piece of skin and underlying subcutaneous tissue was removed. Allis clamps were placed in the midline of the rectocele. 10 mL of half percent Marcaine with epinephrine were injected submucosally. The mucosa was undermined using the Metzenbaum scissors and the mucosa incised in the midline, moving the wide Allis clamps to the mucosal edges. The underlying fascia was dissected off of th mucosa using an open moistened Ray-Armaan and a #10 blade. Using the Capio needle, a 2-0 Prolene suture was placed into the sacral spinous ligament, 2 cm from the ischial spine. This was then placed through the vaginal wall with care not to go through the mucosa, at the most posterior portion. The fascia was reapproximated using 0 Vicryl with a series of horizontal mattress sutures. The excess vaginal mucosa was excised. The mucosa was closed using a series of simple interrupted sutures with 2-0 Vicryl including the underlying fascia to close the space. Once a few stitches were placed into the vaginal mucosa, the sacral spinous ligament suture was tied down on the patient's right side. The remainder of the vaginal mucosa was closed with simple interrupted sutures including the underlying fascia to close the space. On the perineum 0 Vicryl was used to reapproximate the levator muscle. The subcutaneous layer was closed with 2-0 Vicryl. The skin was closed with 3-0 chromic in a subcuticular fashion. Hemostasis was achieved. A Betadine moistened vaginal pack was placed into the vagina. A rectal exam was done and there were no sutures palpable in the rectum. The urine was clear. Attention was turned to the abdomen where the abdominal cavity was re-insufflated. The pelvis was examined and there was no bleeding noted. The pelvis was copiously irrigated with warm normal saline. The instruments were removed from the abdomen. The CO2 was allowed to escape. The trocars were removed. The incisions were closed with 4-0 Monocryl in a subcuticular fashion. Steri-Strips and Allevyn dressings were placed. Sponge, lap, and instrument counts were correct ?-2. The patient tolerated the procedure well, was taken to PACU in stable condition. Complications: none Post-operative Condition: stable Disposition: PACU Plan for aftercare: To acute care after recovery
[2023-02-15] MEDS: LACTATED RINGERS 1,000 ML 70 ML IV ×2 (13:44→20:32)
[2023-02-15] MEDS: IBUPROFEN 600 MG TABLET PO ×2 (13:45→20:32)
[2023-02-15] MEDS: OXYCODONE IR 5 MG TABLET PO ×2 (13:45→17:32)
--- NOTE | 2023-02-15 17:23 | PC.NURSE ---
Pt arrived to the floor at 1310 from PACU. Pt is drowsy but awakes easily to voice, able to make needs known. Pt is oriented to the room. Call light within reach. Glasses at bedside along with ice chips. VSS, Combs cath in place and draining yellow, clear urine, pain is controlled with oral meds. Pt has three Allevyn dressing across her abd. covering the three surgical sites which are clean, dry and intact. Pt has packing vaginal packing which appears dry upon arrival. Will continue to monitor pt and vital signs and address needs as they arise.
[2023-02-15] MEDS: DOCUSATE 100 MG CAPSULE 200 MG PO (20:32)
[2023-02-15] MEDS: ONDANSETRON 4 MG/2 ML INJ IV (22:35)
[2023-02-16] VITALS: BP 96/53; PULSE 75; RESP 18; TEMP 36.4; O2SAT 95
[2023-02-16] MEDS: IBUPROFEN 600 MG TABLET PO ×3 (01:39→14:10)
[2023-02-16 04:00] VITALS: BP 94/51; PULSE 73; RESP 18; TEMP 36.3; O2SAT 96
[2023-02-16] MEDS: ACETAMINOPHEN 325 MG TABLET 650 MG PO ×2 (04:04→11:45)
[2023-02-16 05:15] LABS: Add Manual Diff / Slide Review NO; Basophils Absolute Auto 0 /uL (0-100); Basophils Percent Auto 0.2 % (0-2); Eosinophils Absolute Auto 0 /uL (0-450); Hematocrit 33.9 % (36-46); Hemoglobin 11.6 g/dL (12.0-16.0); Lymphocytes Absolute Auto 1000 /uL (1100-4500); Lymphocytes Percent Auto 10.6 % (25-40); Mean Corpuscular HGB Conc 34.3 % (30-36); Mean Corpuscular Hemoglobin 29.5 PG (26-34); Mean Corpuscular Volume 86.1 fL (80-100); Monocytes Absolute Auto 400 /uL (0-900); Monocytes Percent Auto 3.6 % (3-14); Neutrophils Absolute Auto 8400 /uL (1500-7000); Neutrophils Percent Auto 85.6 % (50-75); Platelet Count 176 X10^3/uL (150-400); Red Blood Cell Count 3.93 X10^6/uL (4.0-5.2); Red Cell Distribution Width 13.8 % (11.6-14.8); White Blood Cell Count 9.8 X10^3/uL (4.5-11.0)
[2023-02-16 08:00] VITALS: BP 105/58; PULSE 68; RESP 19; TEMP 36.4; O2SAT 97
[2023-02-16] MEDS: DOCUSATE 100 MG CAPSULE 200 MG PO (08:32)
--- NOTE | 2023-02-16 10:10 | PC.NURSE ---
Addendum entered by Jaiden Cabrera R.N. 02/16/23 14:39: Pt given d/c instructions, IV d/c'd intact. Pt dressed and escorted to via w/c to friends car. Original Note: Pt a&o offers no overt complaint. Dr. Hudson in to see Pt. will do an I&O cath d.t. no void as yet. Plan for Pt to go home today with or without a corrales in place per Dr. Hudson. See new orders. Pt up and about room easily, ate b'fast. Eager to go home.
--- NOTE | 2023-02-16 10:56 | PC.NURSE ---
Assisted patient with straight cath per patient's request for female provider. Emptied 250 cc clear yellow urine, patient tolerated well. Primary RN notified. Call light left within reach, patient resting in bed.
[2023-02-16 12:00] VITALS: BP 132/76; PULSE 80; RESP 20; TEMP 35.9; O2SAT 100
--- NOTE | 2023-02-16 12:19 | CM.DANOTE ---
Initial DCP Assessment Note Pt is a 77 yo female, resident of [place], now POD#1 from p Laparoscopic Assisted Vaginal Hysterectomy, bilateral salpingo-oophorectomy and Anterior/Posterior Repair, Sacrospinous Ligament Fixation by Dr Hudson PCP: Steff Moya Payer: SASHA/WILLY Reviewed chart, pt discussed in multidisciplinary rounds this morning. Patient is up ambulating in room, using walker. Patient is likely to return home today or tomorrow w/spouse to assist as needed No barriers identified at this time to patient's safe discharge home w/family to assist; close outpatient f/u recommended. CM team will plan to follow closely in case any DC needs or concerns arise ANTONY Wilson Discharge Planning/Care Management CM Discharge Assessment Start: 02/16/23 12:14 Freq: Status: Active Protocol: Document 02/16/23 12:14 DEE (Rec: 02/16/23 12:17 DEE [id number]) Discharge Planning Assessment Assigned Director Supply Chain ANTONY Arias DPOA/Assigned Designee Name Matthew Langley, spouse Contact Information [phone] Advance Directives? Yes: Living Will and Directive Advance Directives on File Yes History Provided By Patient,Medical Record Prior Living Arrangements House Type of transporation used prior to Drives own vehicle admit Independent with ADL's Yes Is patient alert and oriented? Yes Patient/Family Preference OP PT Therapy Barriers to Discharge No Discharge Plan Home Transportation Arrangement Spouse Referrals Initiated None needed
== END 2023-02-16 14:30 | disposition home or self-care (01) ==
LOC: OR 08:12 → AC 08:13
PROVIDERS: PCP Family Medicine; Referring Provider Obstetrics & Gynecology; Visit Provider Obstetrics & Gynecology
PROC: 0UT9FZZ Resection of Uterus, Via Natural or Artificial Opening With Percutaneous Endoscopic Assistance (ICD-10-PCS; CPT 58552; principal; 2023-02-15 09:45)
PROC: (CPT 58552; 2023-02-15 09:45)
DX: N81.3 Complete uterovaginal prolapse (principal); N88.8 Other specified noninflammatory disorders of cervix uteri; N84.0 Polyp of corpus uteri; D25.9 Leiomyoma of uterus, unspecified
CPT/HCPCS: 58552; 57260; 57282; 36415; 80048; 85025; J0171; J0690; J1100; J2250; J2405; J2704; J3010

== ENCOUNTER → 2023-09-23 08:18 | Outpatient (CLI) | payer MEDICARE, SELFPAY ==
[2023-02-15 13:22] VITALS: BMI 24.3
--- NOTE | 2023-09-23 08:19 | DI.MG.S_ITS ---
BILATERAL DIGITAL SCREENING MAMMOGRAM 3D/2D WITH CAD: 09/23/2023 CLINICAL: Routine screening. Family history of breast cancer. Comparison is made to exams dated: 09/01/2022 mammogram, 08/28/2021 mammogram, and 08/27/2020 mammogram - [facility]. Both breasts are heterogeneously dense, which may obscure small masses (category c / 51-75% glandular tissue). Current study was also evaluated with a Computer Aided Detection (CAD) system. There is a biopsy clip in the left breast. No significant masses, calcifications, or other findings are seen in either breast. There has been no significant interval change. IMPRESSION: BENIGN There is no mammographic evidence of malignancy. A 1 year screening mammogram is recommended. Based on the Tyrer Cuzick model (a risk assessment model) the patient's lifetime risk is 8.5% and her 10 year risk is 8.5%. According to the ACR, ACS, and NCCN guidelines, an annual breast MRI exam along with mammogram is recommended if the patient's lifetime risk is 20% or greater. This exam was interpreted at Station ID: [id number]. NOTE: For mammograms, a report in lay terms will be sent to the patient. Approximately 15% of breast malignancies will not be visualized mammographically. In the management of a palpable breast mass, a negative mammogram must not discourage biopsy of a clinically suspicious lesion. Electronically Signed By: Severino reilly/pavel:09/23/2023 16:30:54 letter sent: Normal Exam ACR BI-RADS Category 2: Benign Finding(s) 3342F
== END ==
LOC: MAMMO 08:19
PROVIDERS: PCP Family Medicine; Referring Provider Family Medicine; Visit Provider Family Medicine
DX: Z12.31 Encounter for screening mammogram for malignant neoplasm of breast (principal); Z80.3 Family history of malignant neoplasm of breast; R92.333 Mammographic heterogeneous density, bilateral breasts
CPT/HCPCS: 77063; 77067

== ENCOUNTER → 2024-01-15 10:29 | Outpatient (CLI) | payer MEDICARE, SELFPAY ==
[2023-02-15 13:22] VITALS: BMI 24.3
--- NOTE | 2024-01-15 10:31 | DI.RAD.S_ITS ---
PROCEDURE: XR FOOT LT MIN 3V INDICATIONS: Left foot pain - 1st MTP TECHNIQUE: 3 views of the foot were acquired. COMPARISON: None. FINDINGS: Bones: No fractures or dislocations. No suspicious bony lesions. Tiny marginal erosions along the lateral aspect of the 1st proximal phalanx. Questionable erosions at the 5th metatarsal head. Calcaneal spurring Soft tissues: No tibiotalar joint effusion. Achilles tendon appears normal. IMPRESSION: No acute fracture. Erosions along the margin of the 1st and 5th metatarsophalangeal joint, correlate for gout Dictated by: Markel Dwyer M.D. on 01/15/2024 at 9:46 Approved by: Markel Dwyer M.D. on 01/15/2024 at 9:50
== END ==
PROVIDERS: PCP Family Medicine; Referring Provider Registered Nurse; Visit Provider Registered Nurse
DX: M79.672 Pain in left foot (principal); M77.32 Calcaneal spur, left foot
CPT/HCPCS: 73630

== ENCOUNTER → 2024-03-28 17:10 | Outpatient (CLI) | payer MEDICARE, SELFPAY ==
[2023-02-15 13:22] VITALS: BMI 24.3
--- NOTE | 2024-03-28 17:12 | DI.RAD.S_ITS ---
PROCEDURE: XR CHEST 2V INDICATIONS: Dyspnea on exertion; recent episode of Covid 19 TECHNIQUE: 2 views of the chest were acquired. COMPARISON: None. FINDINGS: Surgical changes and devices: None. Lungs and pleura: Subtle airspace opacity in right infrahilar region is seen, early infiltrate secondary to atypical pneumonia cannot be entirely excluded given patient's history. Left lung is clear. No pleural effusions or pneumothorax. Mediastinum: Mediastinal contours are normal. Heart size is normal. Bones and chest wall: No suspicious bony abnormalities. Soft tissues appear unremarkable. IMPRESSION: Subtle airspace opacity in right infrahilar region concerning for early infiltrate secondary to in typical pneumonia such as COVID-19 versus atelectasis. Clinical correlation and radiographic follow-up is recommended. Dictated by: Adriano Amado M.D. on 03/29/2024 at 15:47 Approved by: Adriano Amado M.D. on 03/29/2024 at 15:48
== END ==
PROVIDERS: PCP Family Medicine; Referring Provider Physician Assistant; Visit Provider Physician Assistant
DX: R06.09 Other forms of dyspnea (principal); Z86.16 Personal history of COVID-19
CPT/HCPCS: 71046

== ENCOUNTER → 2024-04-19 17:00 | Outpatient (CLI) | payer MEDICARE, SELFPAY ==
[2024-04-18 08:56] VITALS: BMI 24.3
--- NOTE | 2024-04-19 17:01 | DI.RAD.S_ITS ---
PROCEDURE: XR CHEST 2V INDICATIONS: 2 week follow up on possible atypical pneumonia TECHNIQUE: 2 views of the chest were acquired. COMPARISON: [facility], CR, XR CHEST 2V, 03/28/2024, 17:10. FINDINGS: Surgical changes and devices: None. Lungs and pleura: Lungs are clear. No pleural effusions or pneumothorax. Mediastinum: Mediastinal contours are normal. Heart size is normal. Bones and chest wall: No suspicious bony abnormalities. Soft tissues appear unremarkable. IMPRESSION: No acute cardiopulmonary abnormality is seen. Dictated by: Cornel Weber M.D. on 04/20/2024 at 10:49 Approved by: Cornel Weber M.D. on 04/20/2024 at 10:50
== END ==
LOC: RAD 17:01
PROVIDERS: PCP Family Medicine; Referring Provider Physician Assistant; Visit Provider Physician Assistant
DX: J18.9 Pneumonia, unspecified organism (principal)
CPT/HCPCS: 71046

== ENCOUNTER → 2024-04-21 07:01 | Outpatient (CLI) | payer MEDICARE, SELFPAY ==
[2024-04-18 08:56] VITALS: BMI 24.3
[2024-04-21 08:17] LABS: Add Manual Diff / Slide Review NO; Basophils Absolute Auto 0 /uL (0-100); Basophils Percent Auto 0.8 % (0-2); Eosinophils Absolute Auto 200 /uL (0-450); Eosinophils Percent Auto 4.1 % (2-4); Hematocrit 37.8 % (36-46); Hemoglobin 12.8 g/dL (12.0-16.0); Lymphocytes Absolute Auto 2100 /uL (1100-4500); Lymphocytes Percent Auto 39.4 % (25-40); Mean Corpuscular HGB Conc 33.8 % (30-36); Mean Corpuscular Hemoglobin 29.3 PG (26-34); Mean Corpuscular Volume 86.9 fL (80-100); Monocytes Absolute Auto 400 /uL (0-900); Monocytes Percent Auto 7.5 % (3-14); Neutrophils Absolute Auto 2600 /uL (1500-7000); Neutrophils Percent Auto 48.2 % (50-75); Platelet Count 184 X10^3/uL (150-400); Red Blood Cell Count 4.35 X10^6/uL (4.0-5.2); Red Cell Distribution Width 13.7 % (11.6-14.8); White Blood Cell Count 5.4 X10^3/uL (4.5-11.0)
[2024-04-21 09:19] LABS: TSH w/ Reflex to FT4 1.15 uIU/mL (0.47-4.68)
[2024-04-21 10:04] LABS: Alanine Aminotransferase 24 IU/L (<35); Albumin 3.7 g/dL (3.5-5.0); Albumin Globulin Ratio 1.6 (1.0-2.8); Alkaline Phosphatase 76 U/L (38-126); Aspartate Aminotransferase 30 IU/L (14-36); BUN Creatinine Ratio 17.8 (6-22); Bilirubin Total 0.4 mg/dL (0.2-1.3); Blood Urea Nitrogen 16 mg/dL (7-17); Calcium 8.9 mg/dL (8.4-10.2); Carbon Dioxide 25 mmol/L (22-32); Chloride 107 mmol/L (98-107); Cholesterol 202 mg/dL (140-199); Estimated Glomerular Filt Rate > 60 mL/min (>60); Globulin 2.3 g/dL (1.7-4.1); Glucose 86 mg/dL (80-110); HDL Cholesterol 60 mg/dL (40-60); HEMOLYSIS < 15 (0-50); LDL Cholesterol Calculated 116 mg/dL (<100); Potassium 4.8 mmol/L (3.4-5.1); Sodium 136 mmol/L (137-145); Triglycerides 132 mg/dL (35-150)
== END ==
PROVIDERS: PCP Family Medicine; Referring Provider Physician Assistant; Visit Provider Physician Assistant
DX: R06.09 Other forms of dyspnea (principal); E78.5 Hyperlipidemia, unspecified
CPT/HCPCS: 36415; 80053; 80061; 84443; 85025

== ENCOUNTER → 2024-04-25 07:11 | Outpatient (CLI) | payer MEDICARE, SELFPAY ==
[2024-04-18 08:56] VITALS: BMI 24.3
--- NOTE | 2024-04-25 07:10 | DI.ECHO.S_ITS ---
[facility] : : [address] : : [place] : : [id number] : : Phone: [phone] Echocardiogram Report + + :Name: KASSANDRA ZIMMERMAN Study Date: 04/25/2024 Height: 62.5 in: :[facility] ReadingLocation: Weight: 129 lb : : Gender: Female BSA: 1.6 m2 : :: 1945 Age: 78 yrs BP: 129/77 mmHg: :Reason For Study: DYSPNEA ON EXERTION, RECENT INF W/ COVID 19 : :Ordering Physician: EMILY, : :ALBER Goel Performed By: Tara Schofield : :Referring: ALBER DIAZ : + + Interpretation Summary 1. The left ventricular contractility is normal. Estimate ejection fraction is greater than 55% with no segmental wall motion abnormalities. No LVH. Grade 1 diastolic dysfunction. 2. The right ventricular contractility is normal. 3. All cardiac chambers are of normal size. 4. Trace to mild aortic insufficiency. 5. No obvious intracardiac shunts. 6. No obvious intracardiac masses nor thrombi. 7. No hemodynamically significant pericardial effusion. 8. Low right-sided filling pressures. Conclusion: Normal biventricular systolic function with no significant valvular abnormalities. Procedure: A two-dimensional transthoracic echocardiogram with color flow and Doppler was performed. The study quality was technically adequate. There is no prior echocardiogram noted for this patient. The patient was in sinus rhythm with heart rates between 63-78 bpm during the exam. Left Ventricle: The left ventricle is normal in size and wall thickness. The ejection fraction is estimated to be 55-60%. Right Ventricle: The right ventricle is normal in size and function. Atria: The left atrial size is normal. Right atrial size is normal. There is no Doppler evidence for an interatrial shunt. Mitral Valve: The mitral valve is normal in structure and function. There is no mitral regurgitation noted. Aortic Valve: The aortic valve is trileaflet. The aortic valve opens well. There is no aortic valve stenosis. There is mild aortic regurgitation. Tricuspid Valve: The tricuspid valve is normal in structure and function. There is trace tricuspid regurgitation. The right ventricular systolic pressure is estimated to be at least 32 mmHg based on an estimated right atrial pressure of 3 mm Hg. Pulmonic Valve: The pulmonic valve leaflets are thin and pliable; valve motion is normal. There is mild pulmonic regurgitation. Great Vessels: The aortic root is normal size. The dimensions of the ascending aorta are normal. The IVC is of normal diameter and collapses greater than 50% with a sniff. This suggests a low right atrial pressure of 3 mm Hg. Pericardium/ Pleura There is no pericardial effusion. There is no pleural effusion. MMode/2D Measurements & Calculations LVIDd: 4.1 cm LVOT diam: 1.9 cm LVIDs: 2.9 cm Ao root diam: 3.5 cm FS: 30.2 % asc Aorta Diam: 3.7 cm EPSS: 0.60 cm IVSd: 0.78 cm LVPWd: 0.80 cm LV barron. diameter/BSA (cm/m^2): 2.6 LV sys. diameter/BSA (cm/m^2): 1.8 LA A2 area: 13.1 cm2 RA long axis: 4.3 cm LA A4 area: 10.2 cm2 RA area: 10.6 cm2 LA length (vol): 4.3 cm RA vol: 22.5 ml LA vol: 26.7 ml RA : 14.1 ml/m2 LA vol index: 16.7 ml/m2 IVC diam: 1.7 cm RVD1 (basal): 2.8 cm RVD2 (mid): 2.0 cm TAPSE: 1.6 cm Doppler Measurements & Calculations Ao V2 max: 123.1 cm/sec LVOT Max Yemi: 86.7 cm/sec Ao V2 mean: 80.5 cm/sec LV V1 max P.0 mmHg Ao max P.1 mmHg LV V1 VTI: 16.3 cm Ao mean P.0 mmHg DARRYL(I,D): 2.2 cm2 Ao V2 VTI: 21.7 cm DARRYL(V,D): 2.1 cm2 sev ratio: 0.75 DARRYL indexed to BSA (cm^2/m^2): 1.4 MV E max yemi: 45.7 cm/sec TR max yemi: 268.4 cm/sec MV A max yemi: 54.3 cm/sec TR max P.8 mmHg MV E/A: 0.84 PA V2 max: 76.1 cm/sec Med Peak E' Yemi: 7.0 cm/sec PA V2 mean: 55.3 cm/sec E/E' med: 6.5 PA mean P.3 mmHg Lat Peak E' Yemi: 6.6 cm/sec PA pr(Accel): 56.7 mmHg E/E' lat: 6.9 E/e' average: 6.7 MV dec time: 0.29 sec SV(LVOT): 47.7 ml Reading Physician:
== END ==
PROVIDERS: PCP Family Medicine; Referring Provider Physician Assistant; Visit Provider Physician Assistant
DX: I35.1 Nonrheumatic aortic (valve) insufficiency (principal); I37.1 Nonrheumatic pulmonary valve insufficiency; R06.09 Other forms of dyspnea; R06.02 Shortness of breath
CPT/HCPCS: 93306

== ENCOUNTER → 2024-04-27 07:52 | Outpatient (CLI) | payer MEDICARE, SELFPAY ==
[2024-04-18 08:56] VITALS: BMI 24.3
--- NOTE | 2024-05-31 09:06 | PC.NURSE ---
late entry: spoke to Annamaria MILLS at [facility] 05/19/24 about Zio tech called about 3rd degree block. She stated message will be relayed to Dr. Mejia.
== END ==
PROVIDERS: PCP Family Medicine; Referring Provider Physician Assistant; Visit Provider Physician Assistant
DX: R06.09 Other forms of dyspnea (principal); R06.02 Shortness of breath; I49.9 Cardiac arrhythmia, unspecified
CPT/HCPCS: 93246; 93248

== ENCOUNTER → 2024-04-27 08:05 | Outpatient (CLI) | payer MEDICARE, SELFPAY ==
[2024-04-18 08:56] VITALS: BMI 24.3
== END ==
LOC: RESP 08:06
PROVIDERS: PCP Family Medicine; Referring Provider Physician Assistant; Visit Provider Physician Assistant
DX: R06.09 Other forms of dyspnea (principal); R06.02 Shortness of breath; Z87.891 Personal history of nicotine dependence; R94.2 Abnormal results of pulmonary function studies
CPT/HCPCS: 93246; 94060; 94726; 94729

== ENCOUNTER → 2024-05-08 12:24 | Outpatient (CLI) | payer MEDICARE, SELFPAY ==
[2024-04-18 08:56] VITALS: BMI 24.3
== END ==
PROVIDERS: PCP Family Medicine; Visit Provider Nurse Practitioner Family
DX: R30.0 Dysuria (principal)
CPT/HCPCS: 87086

== ENCOUNTER 2024-05-08 13:36 | Emergency (ER) | payer MEDICARE, SELFPAY ==
[2024-04-18 08:56] VITALS: BMI 24.3
[2024-05-08] VITALS (9 sets, daily range): BP systolic 140–193; BP diastolic 61–83; PULSE 40–44; RESP 13–27; TEMP 36.5; O2SAT 97–99; BMI 23.6
--- NOTE | 2024-05-08 14:00 | EKG_ITS ---
[facility] [address] [place] [address] Test Date: 2024-05-08 Pat Name: Akanksha [place] Department: [facility] Room: Gender: Female [employer] Processor: JESSI : 1945 Requested By: Order Number: [id number] Reading MD: Enmanuel Mejia MD Measurements Intervals Chama Rate: 41 P: 69 MO: 206 QRS: -11 QRSD: 92 T: 45 QT: 528 QTc: 435 Interpretive Statements Critical Test Result: AV Block Sinus rhythm with 2nd degree AV block with 2:1 AV conduction Low voltage QRS Electronically Signed On 05-08-2024 17:02:41 PDT by Enmanuel Mejia MD
--- NOTE | 2024-05-08 14:08 | DI.RAD.S_ITS ---
PROCEDURE: XR CHEST 1V INDICATIONS: chest pain TECHNIQUE: One view of the chest was acquired. COMPARISON: [facility], CR, XR CHEST 2V, 04/19/2024, 17:07. FINDINGS: Surgical changes and devices: procedure rn projects over the left upper lung zone. Lungs and pleura: Minimal streaky bibasilar opacities. No focal consolidation. Lungs are otherwise clear. No pleural effusions or pneumothorax. Mediastinum: Mediastinal contours appear normal. Heart size is normal. Bones and chest wall: No suspicious bony lesions. Overlying soft tissues appear unremarkable. IMPRESSION: Minimal streaky bibasilar opacities favored to represent atelectasis. No dense consolidation. Otherwise, no acute cardiopulmonary abnormalities. Dictated by: Milan Esquivel M.D. on 05/08/2024 at 14:58 Approved by: Milan Esquivel M.D. on 05/08/2024 at 14:59
--- NOTE | 2024-05-08 14:16 | ED.ARRPALP ---
HPI - Arrhythmia/Palpitations General Chief Complaint: Arrhythmia/Palpitations Stated Complaint: sent by [facility], low pulse Time Seen by Provider: 05/08/24 14:16 History of Present Illness HPI narrative: Patient is a 78-year-old female without any significant past medical history presents to the ED for bradycardia. Patient was at walk-in clinic for a UTI, she was noted to have bradycardia in the 40s, patient currently with Zio patch, completely asymptomatic, no other symptoms at this time. Denies any syncopal or presyncopal symptoms Related Data Previous Rx's Medication Instructions Recorded cephalexin 500 mg capsule 500 mg PO BID 5 days #10 caps 05/08/24 Allergies Allergy/AdvReac Type Severity Reaction Status Date / Time nitrofurantoin Allergy Severe HIVES Verified 04/19/24 16:24 [NITROFURANTOIN] bupropion [BUPROPION] AdvReac Severe HIVES AND Verified 04/19/24 16:24 ITCHING ALL OVER BODY shrimp AdvReac Intermediate N/V/D; hot Verified 04/19/24 16:24 flashes and sweating Patient History Medical History Allergies (~1987) Osteopenia (~2007) Chicken pox (~3) Abnormal Pap smear of cervix Family History Father Cancer of kidney Metastasis to brain Mother Osteoporosis Hypothyroidism Breast cancer Dementia Social History household members: spouse Smoking Status: Former smoker Tobacco: How many years used: 50 second hand exposure: No alcohol intake: current substance use type: does not use Smoking Status: Former smoker alcohol intake frequency: holidays/special occasions only Substance Use Type: does not use Exam Initial Vital Signs Initial Vital Signs: Vital Signs Temperature 97.7 F 05/08/24 13:50 Pulse Rate 41 L 05/08/24 13:50 Respiratory Rate 18 05/08/24 13:50 Blood Pressure 193/83 H 05/08/24 13:50 Pulse Oximetry 99 05/08/24 13:50 Oxygen Delivery Method Room Air 05/08/24 13:50 Course Orders Ordered: ED Orders 05/08/24 14:00 EKG-12 Lead Stat 05/08/24 14:08 XR chest 1V Stat 05/08/24 14:15 Complete Blood Count AUTO DIFF Stat Comprehensive Metabolic Panel Stat Lipase Stat Magnesium Stat NT-proBNP (BNP-Adult 18+) Stat PTT Partial Thromboplastin Wesley Stat Prothrombin Time INR Stat TSH [Thyroid Stimulating Hormone] Stat Troponin & CK Cardiac Panel Stat Vital Signs Vital signs: Vital Signs - 8 hr 05/08/24 13:50 Temperature 97.7 F Pulse Rate 41 L Respiratory Rate 18 Blood Pressure 193/83 H Pulse Oximetry 99 Oxygen Delivery Method Room Air MDM - Arrhythmia/Palpitations Differential Diagnosis Differential diagnosis: Likely palpitations, artial fibrillation, artial flutter and other (Electrolyte abnormality) Lab Data 05/08/24 14:15 05/08/24 14:15 Labs: Lab Results 05/08/24 Range/Units 14:15 WBC 7.6 (4.5-11.0) X10^3/uL RBC 4.50 (4.0-5.2) X10^6/uL Hgb 13.2 (12.0-16.0) g/dL Hct 39.3 (36-46) % MCV 87.4 (80-100) fL MCH 29.3 (26-34) PG MCHC 33.5 (30-36) % RDW 13.9 (11.6-14.8) % Plt Count 199 (150-400) X10^3/uL Neut % (Auto) 67.4 (50-75) % Lymph % (Auto) 24.7 L (25-40) % [place] % (Auto) 5.7 (3-14) % Eos % (Auto) 1.3 L (2-4) % Baso % (Auto) 0.9 (0-2) % Neut # (Auto) 5100 (4332-4408) /uL Lymph # (Auto) 1900 (3241-3022) /uL [place] # (Auto) 400 (0-900) /uL Eos # (Auto) 100 (0-450) /uL Baso # (Auto) 100 (0-100) /uL PT 11.1 (9.4-12.5) SECONDS INR 1.0 (0.9-1.3) APTT 34 (25.1-36.5) SECONDS Sodium 138 (137-145) mmol/L Potassium 4.3 (3.4-5.1) mmol/L Chloride 107 (98-107) mmol/L Carbon Dioxide 23 (22-32) mmol/L BUN 13 (7-17) mg/dL Creatinine 0.82 (0.52-1.04) mg/dL Estimated GFR > 60 (>60) mL/min BUN/Creatinine Ratio 15.9 (6-22) Glucose 98 (80-110) mg/dL Calcium 9.2 (8.4-10.2) mg/dL Magnesium 1.7 (1.6-2.3) mg/dL Total Bilirubin 0.5 (0.2-1.3) mg/dL AST 55 H (14-36) IU/L ALT 95 H (<35) IU/L Alkaline Phosphatase 94 (38-126) U/L Total Creatine Kinase 76 (30-135) U/L Troponin I < 0.012 (0.01-0.034) ng/mL NT-Pro-B Natriuret Pep 1570 H (<450) pg/mL Total Protein 6.3 (6.3-8.2) g/dL Albumin 4.0 (3.5-5.0) g/dL Globulin 2.3 (1.7-4.1) g/dL Albumin/Globulin Ratio 1.7 (1.0-2.8) Lipase 93 (23-300) U/L TSH 0.804 (0.47-4.68) uIU/mL Imaging Data Chest x-ray: Radiologist's Impresson: PROCEDURE: XR CHEST 1V INDICATIONS: chest pain TECHNIQUE: One view of the chest was acquired. COMPARISON: [facility], , XR CHEST 2V, 04/19/2024, 17:07. FINDINGS: Surgical changes and devices: label drier projects over the left upper lung zone. Lungs and pleura: Minimal streaky bibasilar opacities. No focal consolidation. Lungs are otherwise clear. No pleural effusions or pneumothorax. Mediastinum: Mediastinal contours appear normal. Heart size is normal. Bones and chest wall: No suspicious bony lesions. Overlying soft tissues appear unremarkable. IMPRESSION: Minimal streaky bibasilar opacities favored to represent atelectasis. No dense consolidation. Otherwise, no acute cardiopulmonary abnormalities. ECG Data Interpretation: EKG interpreted by ED physician sinus bradycardia 41, QTC [address] changes 2-1 MDM Narrative Medical decision making narrative: Patient is a 78-year-old female no significant past medical history presents to the emergency department for bradycardia. Patient currently with Zio patch, states that she is being worked up due to exertional dyspnea and fatigue but denies any syncopal or presyncopal symptoms. Patient has been completely asymptomatic here in the emergency department, patient does have elevated BNP, however patient clinically not in CHF exacerbation, not requiring supplemental oxygen no pleural effusion on chest x-ray no swelling to the extremities. 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 1454: Discussed case with Cardiology Dr. Horan, he states that given the fact that patient not have any syncopal or presyncopal symptoms and a two-to-one AV block patient will not require admission or transfer at this time, is recommending lab work and TSH, states that patient will need to follow-up with cardiology/EP once Zio patch has been completed. He states that so long as patient remains without any syncopal or presyncopal symptoms does not require any additional workup. Recommending to follow up with Dr. PATITO Olvera Discharge Plan Departure Prescriptions: No Action cephalexin 500 mg capsule 500 mg PO BID 5 Days Qty: 10 0RF Referrals: Patito Olvera MD [Physician] - (Bradycardia, 2-1 AV block) Steff Moya DO [Primary Care Provider] -
[2024-05-08 14:26] LABS: Add Manual Diff / Slide Review NO; Basophils Absolute Auto 100 /uL (0-100); Basophils Percent Auto 0.9 % (0-2); Eosinophils Absolute Auto 100 /uL (0-450); Eosinophils Percent Auto 1.3 % (2-4); Hematocrit 39.3 % (36-46); Hemoglobin 13.2 g/dL (12.0-16.0); Lymphocytes Absolute Auto 1900 /uL (1100-4500); Lymphocytes Percent Auto 24.7 % (25-40); Mean Corpuscular HGB Conc 33.5 % (30-36); Mean Corpuscular Hemoglobin 29.3 PG (26-34); Mean Corpuscular Volume 87.4 fL (80-100); Monocytes Absolute Auto 400 /uL (0-900); Monocytes Percent Auto 5.7 % (3-14); Neutrophils Absolute Auto 5100 /uL (1500-7000); Neutrophils Percent Auto 67.4 % (50-75); Platelet Count 199 X10^3/uL (150-400); Red Cell Distribution Width 13.9 % (11.6-14.8); White Blood Cell Count 7.6 X10^3/uL (4.5-11.0)
[2024-05-08 14:40] LABS: Prothrombin Time 11.1 SECONDS (9.4-12.5)
[2024-05-08 14:43] LABS: PTT Partial Thromboplastin Tim 34 SECONDS (25.1-36.5)
[2024-05-08 14:44] LABS: Alanine Aminotransferase 95 IU/L (<35); Albumin Globulin Ratio 1.7 (1.0-2.8); Alkaline Phosphatase 94 U/L (38-126); Aspartate Aminotransferase 55 IU/L (14-36); BUN Creatinine Ratio 15.9 (6-22); Bilirubin Total 0.5 mg/dL (0.2-1.3); Blood Urea Nitrogen 13 mg/dL (7-17); Calcium 9.2 mg/dL (8.4-10.2); Carbon Dioxide 23 mmol/L (22-32); Chloride 107 mmol/L (98-107); Creatine Kinase 76 U/L (30-135); Estimated Glomerular Filt Rate > 60 mL/min (>60); Globulin 2.3 g/dL (1.7-4.1); Glucose 98 mg/dL (80-110); HEMOLYSIS < 15 (0-50); Lipase 93 U/L (23-300); Magnesium 1.7 mg/dL (1.6-2.3); Potassium 4.3 mmol/L (3.4-5.1); Sodium 138 mmol/L (137-145); Total Protein 6.3 g/dL (6.3-8.2)
[2024-05-08 14:55] LABS: NT-proBNP (BNP-Adult 18+) 1570 pg/mL (<450); Troponin I < 0.012 ng/mL (0.01-0.034)
[2024-05-08 15:44] LABS: Thyroid Stimulating Hormone 0.804 uIU/mL (0.47-4.68)
== END 2024-05-08 16:31 | disposition home or self-care (01) ==
PROVIDERS: Emergency Provider Student in an Organized Health Care Education/Training Program; PCP Family Medicine
DX: R00.1 Bradycardia, unspecified (principal); I44.1 Atrioventricular block, second degree; R07.9 Chest pain, unspecified; R30.0 Dysuria
CPT/HCPCS: 36415; 71045; 80053; 81002; 82550; 83690; 83735; 83880; 84443; 84484; 85025; 85610; 85730; 87086; 93005; 93010; 99284

== ENCOUNTER → 2024-05-18 15:22 | Outpatient (CLI) | payer MEDICARE, SELFPAY ==
[2024-04-18 08:56] VITALS: BMI 24.3
[2024-05-18 16:13] LABS: Bilirubin Urine UA NEGATIVE (NEGATIVE); Glucose Urine UA NEGATIVE (Negative); Ketones Urine UA NEGATIVE (NEGATIVE); Leukocyte Esterase Urine UA 2+ (NEGATIVE); Nitrite Urine UA NEGATIVE (Negative); Occult Blood Urine UA 3+ (Negative); Protein Urine UA 2+ (Negative); Specific Gravity Urine UA >=1.030 (1.000-1.035); Urobilinogen Urine UA 0.2 E.U./dL (0.2)
[2024-05-18 16:19] LABS: Appearance Urine UA CLOUDY; pH Urine UA 5.5 (4.5-8.0)
[2024-05-18 16:20] LABS: Color Urine UA YELLOW; Urine Volume 10mL (spun)
[2024-05-18 16:21] LABS: Bacteria Urine Many (>30); RBC Urine 30-100/HPF (0-5/HPF); Squamous Epithelial Cell Urine 1-5 /HPF (0-5/HPF); WBC Urine >100/HPF (0-5/HPF)
[2024-05-18 16:22] LABS: Culture Indicated Urine Specimen Cultured
== END ==
PROVIDERS: PCP Family Medicine; Referring Provider Family Medicine; Visit Provider Family Medicine
DX: R30.9 Painful micturition, unspecified (principal)
CPT/HCPCS: 81001; 87086

== ENCOUNTER → 2024-07-21 08:51 | Outpatient (CLI) | payer MEDICARE, SELFPAY ==
[2024-04-18 08:56] VITALS: BMI 24.3
[2024-07-21 09:37] LABS: Add Manual Diff / Slide Review NO; Basophils Absolute Auto 100 /uL (0-100); Basophils Percent Auto 0.7 % (0-2); Eosinophils Absolute Auto 200 /uL (0-450); Eosinophils Percent Auto 2.1 % (2-4); Hematocrit 39.1 % (36-46); Hemoglobin 12.9 g/dL (12.0-16.0); Lymphocytes Absolute Auto 2300 /uL (1100-4500); Lymphocytes Percent Auto 29.1 % (25-40); Mean Corpuscular HGB Conc 33.1 % (30-36); Mean Corpuscular Hemoglobin 28.8 PG (26-34); Mean Corpuscular Volume 86.9 fL (80-100); Monocytes Absolute Auto 400 /uL (0-900); Monocytes Percent Auto 5.7 % (3-14); Neutrophils Absolute Auto 4800 /uL (1500-7000); Neutrophils Percent Auto 62.4 % (50-75); Platelet Count 255 X10^3/uL (150-400); Red Blood Cell Count 4.49 X10^6/uL (4.0-5.2); Red Cell Distribution Width 14.1 % (11.6-14.8); White Blood Cell Count 7.7 X10^3/uL (4.5-11.0)
[2024-07-21 11:08] LABS: BUN Creatinine Ratio 16.8 (6-22); Blood Urea Nitrogen 16 mg/dL (7-17); Calcium 9.1 mg/dL (8.4-10.2); Carbon Dioxide 26 mmol/L (22-32); Chloride 106 mmol/L (98-107); Estimated Glomerular Filt Rate > 60 mL/min (>60); Glucose 92 mg/dL (80-110); HEMOLYSIS < 15 (0-50); Potassium 4.6 mmol/L (3.4-5.1); Sodium 136 mmol/L (137-145)
== END ==
PROVIDERS: PCP Family Medicine; Referring Provider Internal Medicine Cardiovascular Disease; Visit Provider Internal Medicine Cardiovascular Disease
DX: I44.1 Atrioventricular block, second degree (principal)
CPT/HCPCS: 36415; 80048; 85025

== ENCOUNTER → 2024-10-10 16:37 | Outpatient (CLI) | payer MEDICARE, SELFPAY ==
[2024-04-18 08:56] VITALS: BMI 24.3
--- NOTE | 2024-10-10 16:38 | DI.MG.S_ITS ---
BILATERAL DIGITAL SCREENING MAMMOGRAM 3D/2D WITH CAD: 10/10/2024 CLINICAL: Routine screening. Family history of breast cancer. Comparison is made to exams dated: 09/23/2023 mammogram, 09/01/2022 mammogram, and 08/28/2021 mammogram - [facility]. The breasts are heterogeneously dense, which may obscure small masses (category c / 51-75% glandular tissue). Current study was also evaluated with a Computer Aided Detection (CAD) system. There is a biopsy clip in the left breast. No significant masses, calcifications, or other findings are seen in either breast. There has been no significant interval change. IMPRESSION: NEGATIVE There is no mammographic evidence of malignancy. A 1 year screening mammogram is recommended. Based on the Tyrer Cuzick model (a risk assessment model) the patient's lifetime risk is 7.8% and her 10 year risk is 0.0%. According to the ACR, ACS, and NCCN guidelines, an annual breast MRI exam along with mammogram is recommended if the patient's lifetime risk is 20% or greater. This exam was interpreted at Station ID: [id number]. NOTE: For mammograms, a report in lay terms will be sent to the patient. Approximately 15% of breast malignancies will not be visualized mammographically. In the management of a palpable breast mass, a negative mammogram must not discourage biopsy of a clinically suspicious lesion. Electronically Signed By: Milan urban/pavel:10/11/2024 06:50:35 letter sent: Normal Exam ACR BI-RADS Category 1: Negative
== END ==
PROVIDERS: PCP Family Medicine; Referring Provider Family Medicine; Visit Provider Family Medicine
DX: Z12.31 Encounter for screening mammogram for malignant neoplasm of breast (principal); Z80.3 Family history of malignant neoplasm of breast; R92.333 Mammographic heterogeneous density, bilateral breasts
CPT/HCPCS: 77063; 77067

== ENCOUNTER → 2025-01-04 09:56 | Outpatient (CLI) | payer MEDICARE, SELFPAY ==
[2024-04-18 08:56] VITALS: BMI 24.3
--- NOTE | 2025-01-04 09:57 | DI.RAD.S_ITS ---
PROCEDURE: XR WRIST LT MIN 3V INDICATIONS: swelling, r/o fx and look for erosions TECHNIQUE: Four views of the wrist were acquired. COMPARISON: None. FINDINGS: Bones: No acute or chronic fractures. There are several subcortical lucencies along the distal ulna and ulnar styloid. Mild joint space loss and sclerosis at the triscaphe articulation. Soft tissues: Faint soft tissue calcification in the triangular fibrocartilage region. No radiodense foreign bodies. IMPRESSION: Subcortical cystic changes predominantly around the distal ulna. This may indicate inflammatory arthritis such as gout. Dictated by: Melita Mulligan M.D. on 01/04/2025 at 15:36 Approved by: Melita Mulligan M.D. on 01/04/2025 at 15:38
== END ==
PROVIDERS: PCP Family Medicine; Referring Provider Family Medicine; Visit Provider Family Medicine
DX: M25.532 Pain in left wrist (principal); M25.432 Effusion, left wrist
CPT/HCPCS: 73110

== ENCOUNTER → 2025-01-25 11:12 | Outpatient (CLI) | payer MEDICARE, SELFPAY ==
[2024-04-18 08:56] VITALS: BMI 24.3
[2025-01-25 12:33] LABS: Hematocrit 36.2 % (36-46); Hemoglobin 12.3 g/dL (12.0-16.0); Mean Corpuscular HGB Conc 33.9 % (30-36); Mean Corpuscular Hemoglobin 29.4 PG (26-34); Mean Corpuscular Volume 86.7 fL (80-100); Platelet Count 295 X10^3/uL (150-400); Red Blood Cell Count 4.17 X10^6/uL (4.0-5.2); Red Cell Distribution Width 14.4 % (11.6-14.8); White Blood Cell Count 11.4 X10^3/uL (4.5-11.0)
[2025-01-25 12:51] LABS: Erythrocyte Sedimentation Rate 21 MM/HR (0-20)
[2025-01-25 13:13] LABS: C-Reactive Protein Quant 1.3 mg/dL (<1.0); Uric Acid 4.5 mg/dL (2.5-6.2)
[2025-01-25 13:36] LABS: Rheumatoid Factor < 8.6 IU/mL (<12.0)
[2025-01-27 11:09] LABS: CCP Antibodies IgG/IgA 5 units (0-19)
[2025-01-28 03:39] LABS: ANA Screen, IFA Positive (.)
== END ==
PROVIDERS: PCP Family Medicine; Referring Provider Family Medicine; Visit Provider Family Medicine
DX: M19.90 Unspecified osteoarthritis, unspecified site (principal)
CPT/HCPCS: 36415; 84550; 85027; 85651; 86038; 86140; 86200; 86430

== ENCOUNTER → 2025-06-05 12:43 | Outpatient (CLI) | payer MEDICARE, SELFPAY ==
[2025-04-11 14:40] VITALS: BMI 24.3
--- NOTE | 2025-06-05 12:46 | DI.RAD.S_ITS ---
PROCEDURE: XR CHEST 2V INDICATIONS: AV BLOCK TECHNIQUE: 2 views of the chest were acquired. COMPARISON: [facility], CR, XR CHEST 2V, 04/19/2024, 17:07. [facility], CR, XR CHEST 2 VIEWS, 07/24/2024, 20:12. [facility], CR, XR CHEST 1V, 05/08/2024, 14:07. FINDINGS: Surgical changes and devices: Similar appearance and positioning of dual chamber left cardiac pacer. Lungs and pleura: Lungs are clear. No pleural effusions or pneumothorax. Mediastinum: Mediastinal contours are normal. Heart size is normal. Bones and chest wall: No suspicious bony abnormalities. Soft tissues appear unremarkable. IMPRESSION: No acute cardiopulmonary disease. Dictated by: Adithya SMITH Interpreted: Morales Weston MD on 06/05/2025 at 13:17 Transcribed by: JUS on 06/05/2025 at 13:18 Approved by: Morales Weston M.D. on 06/05/2025 at 21:26
== END ==
PROVIDERS: PCP Family Medicine; Referring Provider Internal Medicine Cardiovascular Disease; Visit Provider Internal Medicine Cardiovascular Disease
DX: I44.1 Atrioventricular block, second degree (principal)
CPT/HCPCS: 71046

== ENCOUNTER 2025-06-16 10:11 | Emergency (ER) | payer MEDICARE, SELFPAY ==
[2025-04-11 14:40] VITALS: BMI 24.3
[2025-06-16 10:26] VITALS: BP 133/66; PULSE 79; RESP 18; TEMP 36.7; O2SAT 97; BMI 23.4
--- NOTE | 2025-06-16 10:30 | EKG_ITS ---
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
[2025-06-16 11:00] VITALS: BP 113/66; PULSE 75; RESP 15; O2SAT 96
[2025-06-16 11:30] VITALS: BP 135/66; PULSE 79; RESP 15; O2SAT 97
--- NOTE | 2025-06-16 11:30 | ED.FEMALEGU ---
HPI - Female Genitourinary General Chief complaint: Urogenital-Female Stated complaint: Lower back pain/pacemaker issues Time Seen by Provider: 06/16/25 11:04 Source: patient Mode of arrival: Family Vehicle History of Present Illness HPI Narrative: Patient is a 79-year-old female history of pacemaker presenting today with left-sided flank pain. She reports that she has had some back pain ongoing for the last 3 days it is in her left lower lumbar area. Today she has had some nausea she denies any pain radiating to her front. She is not having any chest pain she does have a pacemaker she is worried that her pacemaker might have loose wires no significant shortness of breath. She did take a Lasix this morning. She has been working with her medical administrative technician Dr. Marmolejo in regards to her pacemaker. He thought 1 of the leads was broken she now is supposed to have an outpatient MRI. She has not had any hives syncopal episodes she denies any chest pain or shortness of breath. Related Data Home Medications ?Medication ?Instructions ?Recorded ?Confirmed colchicine 0.6 mg tablet 0.6 mg PO DAILY 04/07/25 04/18/25 Previous Rx's ?Medication ?Instructions ?Recorded estradiol 0.01% (0.1 mg/gram) 0.5 g vaginal 2XW vaginal atrophy 05/16/24 vaginal cream #42.5 grams prednisone 10 mg tablet See Rx Instructions PO DIRECTED 01/31/25 #70 tabs sulfamethoxazole 800 1 tab PO BID 3 days #6 tabs 04/11/25 mg-trimethoprim 160 mg tablet (Bactrim DS) meloxicam 15 mg tablet 15 mg PO DAILY #90 tabs 04/18/25 cephalexin 500 mg capsule 500 mg PO BID 7 days #14 caps 06/16/25 Allergies Allergy/AdvReac Type Severity Reaction Status Date / Time nitrofurantoin Allergy Severe HIVES Verified 06/16/25 10:26 (NITROFURANTOIN) bupropion (BUPROPION) AdvReac Severe HIVES AND Verified 06/16/25 10:26 ITCHING ALL OVER BODY shrimp AdvReac Intermediate N/V/D; hot Verified 06/16/25 10:26 flashes and sweating Patient History Medical History Ruptured Bakers cyst Lower extremity edema Inflammatory arthritis Allergies (~1987) Osteopenia (~2007) Chicken pox (~1952) Abnormal Pap smear of cervix Family History Father Cancer of kidney Metastasis to brain Mother Osteoporosis Hypothyroidism Breast cancer Dementia tobacco type: cigarettes Exam Initial Vital Signs Initial Vital Signs: Vital Signs Temperature 98.1 F 06/16/25 10:26 Pulse Rate 79 06/16/25 10:26 Respiratory Rate 18 06/16/25 10:26 Blood Pressure 133/66 06/16/25 10:26 Pulse Oximetry 97 06/16/25 10:26 Oxygen Delivery Method Room Air 06/16/25 10:26 GENERAL: Your ill-appearing 79-year-old female and in no acute distress. HEENT: Head atraumatic,EOMI, pupils reactive, face symmetric, moist mucous membranes CARDIOVASCULAR: Regular rate and rhythm without murmurs, rubs or gallops. RESPIRATORY: Breath sounds equal bilaterally, no wheezes rales or rhonchi. ABDOMEN: Soft, nontender. Normoactive bowel sounds all 4 quadrants. No guarding or rebound. BACK: No vertebral tenderness no step-off lower lumbar pain : No CVA tenderness EXTREMITIES: Normal range of motion, no clubbing or edema. Neurovascularly intact NEUROLOGICAL: Alert and oriented x4.Normal gait and speech. Cranial nerves II through XII grossly intact. SKIN: Warm, dry, no laceration, no petechiae, no rashes or lesions. Course Orders Ordered: ED Orders 06/16/25 10:50 Urine Microscopic Stat 06/16/25 11:42 CT kidney ureter bladder (KUB) Stat 06/16/25 11:45 Chest [XR chest 2V] Stat 06/16/25 12:00 CBC Auto Diff [Complete Blood Count AUTO DIFF] Stat CMP [Comprehensive Metabolic Panel] Stat Trop I [Troponin I] Stat Discontinued Medications Ondansetron HCl (Ondansetron 4 Mg/2 Ml Inj) 4 mg IV NOW PRN PRN Reason: Nausea And Vomiting Ondansetron HCl (Ondansetron 4 Mg Odt) 4 mg PO NOW PRN PRN Reason: Nausea And Vomiting Vital Signs Vital signs: Vital Signs - 8 hr 06/16/25 10:26 06/16/25 11:00 06/16/25 11:00 Temperature 98.1 F Pulse Rate 79 75 Respiratory Rate 18 15 Blood Pressure 133/66 113/66 Pulse Oximetry 97 96 Oxygen Delivery Method Room Air Room Air 06/16/25 11:30 06/16/25 11:30 06/16/25 12:00 Temperature Pulse Rate 79 77 Respiratory Rate 15 22 Blood Pressure 135/66 Pulse Oximetry 97 98 Oxygen Delivery Method 06/16/25 12:30 06/16/25 13:00 Temperature Pulse Rate 77 81 Respiratory Rate 15 19 Blood Pressure Pulse Oximetry 96 Oxygen Delivery Method MDM - Female Genitourinary Lab Data 06/16/25 12:00 06/16/25 12:00 Labs: Lab Results 06/16/25 06/16/25 Range/Units 10:50 12:00 WBC 10.1 (4.5-11.0) X10^3/uL RBC 4.41 (4.0-5.2) X10^6/uL Hgb 12.3 (12.0-16.0) g/dL Hct 37.1 (36-46) % MCV 84.1 (80-100) fL MCH 27.9 (26-34) PG MCHC 33.1 (30-36) % RDW 14.2 (11.6-14.8) % Plt Count 230 (150-400) X10^3/uL Neut % (Auto) 71.5 (50-75) % Lymph % (Auto) 19.0 L (25-40) % [place] % (Auto) 8.6 (3-14) % Eos % (Auto) 0.6 L (2-4) % Baso % (Auto) 0.3 (0-2) % Neut # (Auto) 7200 H (6966-3310) /uL Lymph # (Auto) 1900 (5050-0313) /uL [place] # (Auto) 900 (0-900) /uL Eos # (Auto) 100 (0-450) /uL Baso # (Auto) 0 (0-100) /uL Sodium 136 L (137-145) mmol/L Potassium 4.2 (3.4-5.1) mmol/L Chloride 102 (98-107) mmol/L Carbon Dioxide 25 (22-32) mmol/L BUN 18 H (7-17) mg/dL Creatinine 0.80 (0.52-1.04) mg/dL Estimated GFR > 60 (>60) mL/min BUN/Creatinine Ratio 22.5 H (6-22) Glucose 103 H (70-99) mg/dL Calcium 9.2 (8.4-10.2) mg/dL Total Bilirubin 0.3 (0.2-1.3) mg/dL AST 21 (14-36) IU/L ALT 11 (<35) IU/L Alkaline Phosphatase 90 (38-126) U/L Troponin I < 0.012 (0.01-0.034) ng/mL Total Protein 7.6 (6.3-8.2) g/dL Albumin 4.3 (3.5-5.0) g/dL Globulin 3.3 (1.7-4.1) g/dL Albumin/Globulin Ratio 1.3 (1.0-2.8) Urine RBC 5-10/hpf H (0-5/HPF) Urine WBC 30-100/hpf H (0-5/HPF) Ur Squamous Epith Cells 5-10 /hpf H (0-5/HPF) Urine Bacteria Moderate (10-30) H (None) Ur Culture Indicated? Cult not indicated Vol Urine Centrifuged 10ml (spun) Urine Dip Bedside Urine Glucose Negative Bedside Urine Bilirubin - Negative Bedside Urine Ketone - Negative Urine Specific [place] 1.015 Bedside Urine Occult Blood +++ Bedside Urine pH 6.0 Bedside Urine Protein +/- 15 Bedside Urine Urobilinogen - Negative Bedside Urine Nitrite - Negative Bedside Urine Leukocytes +++ [address] scan - abdomen/pelvis: Radiologist's Impression: PROCEDURE: CT KIDNEY URETER BLADDER (KUB) INDICATIONS: left flank pain TECHNIQUE: CT of the abdomen and pelvis was obtained without intravenous contrast. Coronal and sagittal reformats were performed. For radiation dose reduction, the following was used: automated exposure control, adjustment of mA and/or kV according to patient size. COMPARISON: None. FINDINGS: Image quality: Diagnostic. Lower Chest: No significant findings. ABDOMEN: Liver: No contour-deforming mass. Several hepatic hypodensities, likely cysts measuring less than 1.4 cm Gallbladder: No radiopaque gallstones or wall thickening. Biliary ducts: No biliary dilation. Pancreas: No ductal dilation. Spleen: Size is within normal limits. Adrenal Glands: No adrenal nodules. Kidneys and Ureters: No hydronephrosis. No contour-deforming mass. 4.8 cm simple right renal cyst. No calculi Stomach and Bowel: Normal colonic caliber, without significant wall thickening. Peritoneum: No abnormal intraperitoneal fluid. No free air. Ventral Wall: No significant hernia. Abdominal Nodes: No retroperitoneal or mesenteric adenopathy by size criteria. Vessels: Aortic atherosclerotic vascular calcification noted without evidence of aneurysm. PELVIS: Pelvic Organs: Unremarkable. Bladder: Unremarkable. Pelvic Nodes: No enlarged lymph nodes. Miscellaneous: No inguinal hernias are seen. Bones: Degenerative disc disease and arthropathy noted in lower lumbar spine. IMPRESSION: No acute findings. Bilateral renal cysts without hydronephrosis or calculus. Approved by: Reyes Miranda M.D. on 06/16/2025 at 11:47 Chest x-ray: Radiologist's Impression: PROCEDURE: XR CHEST 2V INDICATIONS: pacemaker pain TECHNIQUE: 2 views of the chest were acquired. COMPARISON: [facility], , XR CHEST 2V, 06/05/2025, 12:49. FINDINGS: Surgical changes and devices: Left-sided dual-chamber pacemaker Lungs and pleura: Lungs are clear. No pleural effusions or pneumothorax. Mediastinum: Mediastinal contours are normal. Heart size is normal. Bones and chest wall: No suspicious bony abnormalities. Soft tissues appear unremarkable. IMPRESSION: No acute cardiopulmonary abnormality is seen. Approved by: Reyes Miranda M.D. on 06/16/2025 at 11:17 ECG Data Interpretation: Sinus paced rhythm rate 77 SC interval 176 QRS [address] changes no T-wave inversion MDM Narrative Medical decision making narrative: MDM CC: Back pain Complicating co-morbidities: Pacemaker, went UTI Data collected from: Patient is a Medical records reviewed: Urinalysis from March reveals pansensitive E coli Differential considered: UTI, pyelonephritis, suicidal back pain, and nephrolithiasis Exam documented above, pertinent findings include: Patient has mild tender in her low lumbar spine no significant CVA tenderness abdomen is soft nontender Lab Test results independently reviewed as above. Pertinent findings: CBC WBC 10 no anemia CMP no electrolyte abnormality creatinine 0.8, glucose 103 Troponin negative Urinalysis positive for leukocytes and red blood cells there is 5-10 squamous cells moderate bacteria Independently reviewed EKG as above Sinus paced rhythm Imaging studies independently reviewed: CT no nephrolithiasis do acute findings Chest x-ray no acute cardiopulmonary process, has been reviewed by me no obvious read fracture Consultations: [ ] Treatments: None Re-evaluations: Patient has been up to the restroom a couple of times Discussion: Patient is having some painful frequent urination with hematuria she has got some low back pain but this does not seem to be kidney related. CT is negative for nephrolithiasis. She shows no signs of sepsis. Urinalysis actually has squamous cells suspect likely contamination however patient bit has been up to the restroom a couple of times while in the ED. She is afebrile. Low suspicion for any kind of pyelonephritis. There is no evidence of any heart issue she is not having any chest pain or shortness of breath. Recommend outpatient follow up in regards to that. She is not requiring anything for pain for her back. I suspect her back pain may actually be more really does have musculoskeletal pain no concern for cauda equina or other symptoms Discharge Plan Departure Patient Disposition: Home Clinical Impression: Acute UTI Instructions: DI for Urinary Tract Infection (UTI) Activity Restrictions/Additional Instructions: *You have been diagnosed with UTI *What to do: At this time blood work and CAT scanner overall reassuring. No evidence of kidney stone. *Continue to take medications as directed Keflex 500 mg twice a day for 7 days *Follow up with your primary care provider in 2-3 days or call [phone] *Return to ER if you should have increasing pain nausea vomiting back pain [or] any new, worsening or concerning symptoms Prescriptions: New cephalexin 500 mg capsule 500 mg PO BID 7 Days Qty: 14 0RF No Action colchicine 0.6 mg tablet 0.6 mg PO DAILY estradiol 0.01 % (0.1 mg/gram) cream 0.5 g vaginal 2XW Qty: 42.5 2RF prednisone 10 mg tablet See Rx Instructions PO DIRECTED Qty: 70 0RF Rx Instructions: 40mg daily for 7 days, then 30mg for 7 days, then 20mg for 7 days, then 10mg for 7 days then re-evaluate need to continue vs ability to come off. sulfamethoxazole-trimethoprim [Bactrim DS] 800-160 mg tablet 1 tab PO BID 3 Days Qty: 6 1RF meloxicam 15 mg tablet 15 mg PO DAILY Qty: 90 0RF Referrals: Steff Moya, [Primary Care Provider, Medical] Stand Alone Forms: Patient Portal/API
[2025-06-16 11:38] LABS: Culture Indicated Urine Cult Not Indicated
--- NOTE | 2025-06-16 11:42 | DI.CT.S_ITS ---
PROCEDURE: CT KIDNEY URETER BLADDER (KUB) INDICATIONS: left flank pain TECHNIQUE: CT of the abdomen and pelvis was obtained without intravenous contrast. Coronal and sagittal reformats were performed. For radiation dose reduction, the following was used: automated exposure control, adjustment of mA and/or kV according to patient size. COMPARISON: None. FINDINGS: Image quality: Diagnostic. Lower Chest: No significant findings. ABDOMEN: Liver: No contour-deforming mass. Several hepatic hypodensities, likely cysts measuring less than 1.4 cm Gallbladder: No radiopaque gallstones or wall thickening. Biliary ducts: No biliary dilation. Pancreas: No ductal dilation. Spleen: Size is within normal limits. Adrenal Glands: No adrenal nodules. Kidneys and Ureters: No hydronephrosis. No contour-deforming mass. 4.8 cm simple right renal cyst. No calculi Stomach and Bowel: Normal colonic caliber, without significant wall thickening. Peritoneum: No abnormal intraperitoneal fluid. No free air. Ventral Wall: No significant hernia. Abdominal Nodes: No retroperitoneal or mesenteric adenopathy by size criteria. Vessels: Aortic atherosclerotic vascular calcification noted without evidence of aneurysm. PELVIS: Pelvic Organs: Unremarkable. Bladder: Unremarkable. Pelvic Nodes: No enlarged lymph nodes. Miscellaneous: No inguinal hernias are seen. Bones: Degenerative disc disease and arthropathy noted in lower lumbar spine. IMPRESSION: No acute findings. Bilateral renal cysts without hydronephrosis or calculus. Approved by: Reyes Miranda M.D. on 06/16/2025 at 11:47
--- NOTE | 2025-06-16 11:45 | DI.RAD.S_ITS ---
PROCEDURE: XR CHEST 2V INDICATIONS: pacemaker pain TECHNIQUE: 2 views of the chest were acquired. COMPARISON: [facility], , XR CHEST 2V, 06/05/2025, 12:49. FINDINGS: Surgical changes and devices: Left-sided dual-chamber pacemaker Lungs and pleura: Lungs are clear. No pleural effusions or pneumothorax. Mediastinum: Mediastinal contours are normal. Heart size is normal. Bones and chest wall: No suspicious bony abnormalities. Soft tissues appear unremarkable. IMPRESSION: No acute cardiopulmonary abnormality is seen. Approved by: Reyes Miranda M.D. on 06/16/2025 at 11:17
[2025-06-16 12:00] VITALS: PULSE 77; RESP 22; O2SAT 98
[2025-06-16 12:23] LABS: Add Manual Diff / Slide Review NO; Hematocrit 37.1 % (36-46); Hemoglobin 12.3 g/dL (12.0-16.0); Lymphocytes Absolute Auto 1900 /uL (1100-4500); Mean Corpuscular HGB Conc 33.1 % (30-36); Mean Corpuscular Hemoglobin 27.9 PG (26-34); Mean Corpuscular Volume 84.1 fL (80-100); Platelet Count 230 X10^3/uL (150-400)
[2025-06-16 12:30] VITALS: PULSE 77; RESP 15; O2SAT 96
[2025-06-16 12:36] LABS: Alanine Aminotransferase 11 IU/L (<35); Albumin 4.3 g/dL (3.5-5.0); Albumin Globulin Ratio 1.3 (1.0-2.8); Alkaline Phosphatase 90 U/L (38-126); Blood Urea Nitrogen 18 mg/dL (7-17); Calcium 9.2 mg/dL (8.4-10.2); Carbon Dioxide 25 mmol/L (22-32); Chloride 102 mmol/L (98-107); Estimated Glomerular Filt Rate > 60 mL/min (>60); Globulin 3.3 g/dL (1.7-4.1); Glucose 103 mg/dL (70-99); HEMOLYSIS < 15 (0-50); Potassium 4.2 mmol/L (3.4-5.1); Sodium 136 mmol/L (137-145); Total Protein 7.6 g/dL (6.3-8.2)
[2025-06-16 12:47] LABS: Troponin I < 0.012 ng/mL (0.01-0.034)
[2025-06-16 13:00] VITALS: PULSE 81; RESP 19
== END 2025-06-16 13:11 | disposition home or self-care (01) ==
PROVIDERS: Emergency Provider Emergency Medicine; PCP Family Medicine
DX: N39.0 Urinary tract infection, site not specified (principal); Z95.0 Presence of cardiac pacemaker; M54.50 Low back pain, unspecified
CPT/HCPCS: 36415; 71046; 74176; 80053; 81003; 81015; 84484; 85025; 93005; 99283; 99284

== ENCOUNTER → 2025-07-10 09:14 | Outpatient (CLI) | payer MEDICARE, SELFPAY ==
[2025-04-11 14:40] VITALS: BMI 24.3
--- NOTE | 2025-07-10 09:16 | DI.NM.S_ITS ---
PROCEDURE: NM ANUEL PERF SPECT R&S PHARM Rest and pharmacological stress myocardial perfusion SPECT with gated imaging and ejection fraction RADIOPHARMACEUTICAL: 12.8 mCi Tc-99m tetrafosmin IV at rest and 25.5 mCi Tc-99m tetrafosmin IV at peak effect of pharmacological stress. [id number] was performed. INDICATIONS: AV Block PQRS ATTESTATIONS: Measure 322 - Is this imaging test primarily performed on a low-risk surgery patient for preoperative evaluation within 30 days preceding their low-risk non-cardiac surgery? Low-risk surgery is defined as cardiac or myocardial infarction less than 1%, including (but not limited to) endoscopic procedures, superficial procedures, cataract surgery, and excisional breast surgery: Answer: No Measure 323 - Is this imaging test performed primarily for the monitoring of an asymptomatic patient who had percutaneous coronary intervention on the visit date or within 2 years of the visit date? Answer: No Measure 324 - Is this imaging test performed primarily for the initial detection and risk assessment on an asymptomatic, low coronary heart disease patient? Low CHD risk definition = clinicians should consider the maximum number of available patient factors used to estimate risk based on Conway (ATP III criteria), typically age, gender, diabetes, smoking status, and use of blood pressure medication, and integrate age appropriate estimates for missing elements, such as LDL or standard blood pressure. Answer: No TECHNIQUE: Radiopharmaceutical was injected at peak stress test, and also at rest. SPECT images were obtained. SPECT myocardial perfusion images were displayed in short axis, horizontal long axis, and vertical long axis views. Gated images were reviewed using [employer] software. COMPARISON: None. CARDIAC STRESS: A pharmacologic stress test was performed under the supervision of an attending staff, using an infusion of 0.4 mg of Lexiscan. Hemodynamic data: There is normal blood pressure and heart rate response to pharmacologic stress. Symptoms: The patient denied anginal chest pain. Aminophylline: None EKG: Baseline ECG demonstrated ventricular paced rhythm with 100% capture. This did not change with Lexiscan infusion.. FINDINGS: Raw data: There is good myocardial uptake of radiotracer. No significant motion artifacts. Fvni-op-xwylx ratio is not available (normal is less than 0.38 for tetrafosmin tracer). Left ventricle function: Gated images demonstrate normal left ventricular wall thickening. No segmental wall motion abnormalities. No transient ischemic dilation; TID is 1.04 (normal less than 1.3). Left ventricle resting end diastolic volume is 102 mL. Left ventricle stress ejection fraction is 74%; normal range is above 45%. Myocardial perfusion: Rest images had moderate to severe hypoperfusion in the entire inferior and apical segments. Stress images had severe apical hypoperfusion with improved perfusion in the inferior segment. Prone images had no perfusion defects. These findings most likely represents attenuation. IMPRESSION: 1. Negative Lexiscan myocardial perfusion scan for ischemia and infarction. Dictated by: Shivam mAado M.D. on 07/10/2025 at 17:22 Approved by: Shivam Amado M.D. on 07/10/2025 at 17:24
== END ==
LOC: NUCM 09:16
PROVIDERS: PCP Family Medicine; Referring Provider Internal Medicine Cardiovascular Disease; Visit Provider Internal Medicine Cardiovascular Disease
DX: I44.1 Atrioventricular block, second degree (principal)
CPT/HCPCS: 78452; 93017; A9502; J2785